=== PATIENT | male | born 1960 | race Caucasian/White ===

== ENCOUNTER 2016-09-27 19:52 | Inpatient (IN) | payer OTHER, MEDICAID, MEDICARE ==
[~2016-09-27] VITALS: Ht 193 cm; Wt 272.4 kg
[~2016-09-27 19:52] MED LIST: ALBU.5I NEB; AMIT50TA3 PO; ASPI-110 PO; BACL20TA PO; C-50TAB2 PO; CALC1TAB53 PO; CYAN100017 PO; FLUT1INH INH; GABA600T PO; GEMF600T PO; HYDR-3583 PO; LECI1200 PO; LISI2.5T3 PO; METF500T PO; OMEG100037 PO; OMEP20TA PO; POTA595T PO; VENTAER INH; VITATAB11 PO
[2016-09-27 20:04] VITALS: BP 143/76; PULSE 98; RESP 22; TEMP 97.8; O2SAT 95
[2016-09-27 20:37] VITALS: BP 137/70; PULSE 84; RESP 20; O2SAT 94
--- NOTE | 2016-09-27 20:37 | PD ---
HPI Chief Complaint: Chest Pain Time Seen by Provider: 20:21 Travel History International Travel<30 days: No Contact w/Intl Traveler<30days: No Traveled to known affect area: No History of Present Illness HPI The patient is a 56-year-old male with no known history of heart disease but who does have a history of COPD and is oxygen dependent on 2 L nasal cannula. He complains of a mostly sharp, pleuritic chest pain which radiates out the left arm. He denies any fever or cough. He states that the last time he had this chest pain he was admitted for pneumonia. He does have increased shortness of breath from what he usually feels. He denies any nausea or diaphoresis. PFSH Past Medical History Hx Anticoagulant Therapy: Yes (ASPIRIN) Arthritis: No Asthma: No Heart Rhythm Problems: Yes (HEART MUR MUR A CHILD) Cancer: Yes (RENAL) Cardiovascular Problems: Yes High Cholesterol: Yes Chemotherapy: No Chest Pain: No Congestive Heart Failure: No COPD: Yes Cerebrovascular Accident: No Coronary Artery Disease: No Diabetes: Yes Patient Takes Glucophage: Yes Diminished Hearing: Yes (BILAT HEARING AIDS) Endocrine: Yes Gastrointestinal Disorders: Yes (GERD) GERD: Yes Genitourinary: Yes Hepatitis: No Hiatal Hernia: No Hypertension: Yes Immune Disorder: No Kidney Stones: No Musculoskeletal: Yes Neurologic: Yes (NEUROPATHY, BILAT LEGS) Psychiatric: No Reproductive: No Respiratory: Yes Immunizations Current: Yes Migraines: No Radiation Therapy: No Renal Failure: No Seizures: No Sleep Apnea: Yes Thyroid Disease: No Ulcer: Yes Tetanus Vaccination: < 5 Years Influenza Vaccination: Yes Past Surgical History Abdominal Surgery: Yes (GALLBLADDER) AICD: No Arteriovenous Shunt: No Cardiac Surgery: No Cholecystectomy: Yes Ear Surgery: Yes (TUBES) Endocrine Surgery: No Eye Surgery: No Genitourinary Surgery: Yes (RENAL MASS BIOPSY AND CYRO) Gynecologic Surgery: No Hysterectomy: No Insulin Pump: No Joint Replacement: No Oral Surgery: Yes (TONSILLECTOMY) Pacemaker: No Thoracic Surgery: Yes (RIGHT LOBECTOMY) Tonsillectomy: Yes Other Surgery: Yes (UNDER RIGHT AXILLA REMOVED ABCESS) Social History Alcohol Use: No Tobacco Use: No (QUIT JANUARY 2013) Substance Use: No Allergies-Medications (Allergen,Severity, Reaction): Coded Allergies: Nonsteroidal Anti-Inflammatory Agts (Verified Adverse Reaction, Unknown, Bleeding, 09/27/16) GI BLEEDING Reported Meds & Prescriptions Reported Meds & Active Scripts Active Reported Breo Ellipta Inh (Fluticasone/Vilanterol) 100-25 Mcg/Act Inh 1 Puff INH DAILY Use daily at the same time. Lecithin 1,200 Mg Cap PO Potassium Gluconate 595 Mg Tab 1 Tab PO DAILY Vitamin B Complex (B-Complex Vitamins) 1 Tab 1 Tab PO DAILY Fish Oil 1000 mg ([place]-3 Fatty Acids) 1 Cap Cap 1 Cap PO DAILY Aspirin 81 (Aspirin) 81 Mg Tabdr 81 Mg PO DAILY B-12 (Cyanocobalamin) 1,000 Mcg Cap 1,000 Mcg PO DAILY Calcium & Magnesium + Zinc (Vouislz-Gxakdupix-Aamg) 334-134-5 Mg Tab 1 Tab PO DAILY C-500 (Ascorbic Acid) 500 Mg Tab 1 Tab PO TID Albuterol Neb (Albuterol Sulfate) 2.5 Mg/0.5 Ml Neb 2.5 Mg NEB Q4HR NEB PRN Note: The Albuterol Sulfate Inhalation Solution is concentrated and must be diluted. Read complete instructions carefully before using. Ventolin Hfa 18 GM Inh (Albuterol Sulfate) 90 Mcg/Act Aer 2 Puff INH Q4H PRN Metformin (Metformin HCl) 500 Mg Tab 500 Mg PO BIDPC With meals Lisinopril 2.5 Mg Tab 2.5 Mg PO DAILY Omeprazole 20 Mg Tab 20 Mg PO DAILY Gemfibrozil 600 Mg Tab 600 Mg PO BIDAC Take 30 minutes prior to breakfast and dinner. Amitriptyline (Amitriptyline HCl) 50 Mg Tab 50 Mg PO HS Hydrocodone-Acetaminophen 10-325 mg Tab 1 Tab PO Q6H PRN Baclofen 20 Mg Tab 20 Mg PO TID Gabapentin 600 Mg Tab 600 Mg PO TID Review of Systems Except as stated in HPI: all other systems reviewed are Neg Physical Exam Narrative GENERAL: The patient is alert, oriented 3 and slight respiratory distress. His vital signs show blood pressure 143/76 with heart rate of 98 and respirations 22 and oximetry 95% on 2 L nasal cannula. His temperature is normal at 97.8. SKIN: Warm and dry. HEAD: Atraumatic. Normocephalic. EYES: Pupils equal and round. No scleral icterus. No injection or drainage. ENT: No nasal bleeding or discharge. Mucous membranes pink and moist. NECK: Trachea midline. No JVD. CARDIOVASCULAR: Regular rate and rhythm. No murmur appreciated. RESPIRATORY: No accessory muscle use. Clear to auscultation. Breath sounds equal bilaterally. Diminished breath sounds are heard bilaterally. GASTROINTESTINAL: Abdomen soft, non-tender, nondistended. Hepatic and splenic margins not palpable. MUSCULOSKELETAL: No obvious deformities. No clubbing. No cyanosis. No edema. NEUROLOGICAL: Awake and alert. No obvious cranial nerve deficits. Motor grossly within normal limits. Normal speech. PSYCHIATRIC: Appropriate mood and affect; insight and judgment normal. Data Data Last Documented VS Vital Signs Date Time Temp Pulse Resp B/P Pulse Ox O2 Delivery O2 Flow Rate FiO2 09/27/16 20:40 86 24 93 Nasal Cannula 2 09/27/16 20:37 137/70 09/27/16 20:04 97.8 Orders Electrocardiogram (09/27/16 20:20) Complete Blood Count With Diff (09/27/16 20:20) Basic Metabolic Panel (Bmp) (09/27/16 20:20) Ckmb (Isoenzyme) Profile (09/27/16 20:20) Troponin I (09/27/16 20:20) Iv Access Insert/Monitor (09/27/16 20:20) Ecg Monitoring (09/27/16 20:20) Oxygen Administration (09/27/16 20:20) Oximetry (09/27/16 20:20) Chest, Pa & Lat (09/27/16 20:20) Arterial Blood Gas (Abg) (09/27/16 20:31) Albuterol-Ipratropium Neb (Duoneb Neb) (09/27/16 20:45) B-Type Natriuretic Peptide (09/27/16 20:32) CKMB (09/27/16 20:30) CKMB% (09/27/16 20:30) Pneumococcal Urinary Antigen (09/27/16 21:47) Influenzae A/B Antigen (09/27/16 21:47) Blood Culture (09/27/16 21:47) Legionella Urinary Antigen (09/27/16 21:47) Sodium Chloride 0.9% Flush (Ns Flush) (09/27/16 22:00) Ceftriaxone Inj (Rocephin Inj) (09/27/16 22:00) Azithromycin Inj (Zithromax Inj) (09/27/16 22:00) Hydromorphone Pf Inj (Dilaudid Pf Inj) (09/27/16 22:00) Ondansetron Inj (Zofran Inj) (09/27/16 22:00) Ct Pulmonary Angiogram (09/27/16 21:56) Labs Laboratory Tests Test 09/27/16 09/27/16 20:30 20:45 White Blood Count 9.8 TH/MM3 Red Blood Count 4.42 MIL/MM3 Hemoglobin 13.7 GM/DL Hematocrit 40.6 % Mean Corpuscular Volume 92.0 FL Mean Corpuscular Hemoglobin 31.0 PG Mean Corpuscular Hemoglobin 33.7 % Concent Red Cell Distribution Width 12.3 % Platelet Count 229 TH/MM3 Mean Platelet Volume 8.7 FL Neutrophils (%) (Auto) 52.2 % Lymphocytes (%) (Auto) 37.4 % Monocytes (%) (Auto) 7.2 % Eosinophils (%) (Auto) 2.9 % Basophils (%) (Auto) 0.3 % Neutrophils # (Auto) 5.2 TH/MM3 Lymphocytes # (Auto) 3.6 TH/MM3 Monocytes # (Auto) 0.7 TH/MM3 Eosinophils # (Auto) 0.3 TH/MM3 Basophils # (Auto) 0.0 TH/MM3 CBC Comment DIFF FINAL Differential Comment Sodium Level 139 MEQ/L Potassium Level 4.2 MEQ/L Chloride Level 104 MEQ/L Carbon Dioxide Level 26.3 MEQ/L Anion Gap 9 MEQ/L Blood Urea Nitrogen 13 MG/DL Creatinine 0.76 MG/DL Estimat Glomerular Filtration 107 ML/MIN Rate Random Glucose 220 MG/DL Calcium Level 8.9 MG/DL Total Creatine Kinase 652 U/L Creatine Kinase MB 7.3 NG/ML Creatine Kinase MB % 1.1 % Troponin I LESS THAN 0.02 NG/ML B-Type Natriuretic Peptide 9 PG/ML Blood Gas Puncture Site RT RADIAL Blood Gas Patient Temperature 37.0 Blood Gas HCO3 22 mmol/L Blood Gas Base Excess -2.3 mmol/L Blood Gas Oxygen Saturation 90 % Arterial Blood pH 7.40 Arterial Blood Partial 36 mmHg Pressure CO2 Arterial Blood Partial 63 mmHg Pressure O2 Arterial Blood Oxygen Content 17.0 Vol % Arterial Blood 1.5 % Carboxyhemoglobin Arterial Blood Methemoglobin 0.8 % Blood Gas Hemoglobin 13.4 G/DL Oxygen Delivery Device NASAL CANNULA Blood Gas Liter Flow 1 L/M MDM Medical Decision Making Medical Screen Exam Complete: Yes Emergency Medical Condition: Yes Medical Record Reviewed: Yes Interpretation(s) The chest x-ray shows by basilar infiltrates right greater than left. The complete metabolic profile shows a glucose of 220 but otherwise unremarkable, the cardiac enzymes show CK of 652, normal troponin and the CK percentage is normal. The BNP is normal. The CBC is normal. The blood gases on 1 L nasal cannula show pH 7.40, CO2 36, PO2 63 with O2 sat 90%. The EKG shows sinus rhythm with a rate of [address] elevation or depression. Differential Diagnosis Pneumonia, pneumothorax, acute coronary syndrome, electrolyte disorder, anemia, pulmonary embolusunlikely, Narrative Course The patient appears to have a bilateral pneumonia. Plan: He will be admitted to Dr. Lee of the [facility]. We will do a CTA to rule out pulmonary embolus. Physician Communication Physician Communication I discussed the patient with Dr. Lee. The patient will be admitted to her here at [facility]. Diagnosis Primary Impression: Bilateral pneumonia Admitting Information Admitting Physician Requests: Admit Corey Machado MD Sep 27, 2016 20:36
[2016-09-27 20:39] LABS: AUTOMATED NEUTROPHIL # 5.2 TH/MM3 (1.8-7.7); BASOPHIL % 0.3 % (0.0-2.0); EOSINOPHIL # 0.3 TH/MM3 (0-0.4); EOSINOPHIL % 2.9 % (0.0-4.0); HEMATOCRIT 40.6 % (39.0-51.0); HEMO FLAGS DIFF FINAL; LYMPH % 37.4 % (9.0-44.0); LYMPHOCYTE # 3.6 TH/MM3 (1.0-4.8); MEAN CORPUSCULAR HGB CONC 33.7 % (32.0-36.0); MONO % 7.2 % (0.0-8.0); NEUT % 52.2 % (16.0-70.0); PLATELET COUNT 229 TH/MM3 (150-450); RED BLOOD COUNT 4.42 MIL/MM3 (4.50-5.90); RED CELL DISTRIBUTION WIDTH 12.3 % (11.6-17.2); WHITE BLOOD COUNT 9.8 TH/MM3 (4.0-11.0)
[2016-09-27] MEDS: RESP: ALBUTEROL 2.5 MG/IPRATROPIUM 0.5 MG NEB (SCH) INH ×3 (20:43→20:59)
[2016-09-27 20:51] LABS: CHLORIDE 104 MEQ/L (98-107); POTASSIUM 4.2 MEQ/L (3.5-5.1); SODIUM (NA) 139 MEQ/L (136-145)
[2016-09-27 20:55] LABS: ANION GAP 9 MEQ/L (5-15); BICARBONATE 26.3 MEQ/L (21.0-32.0); BLOOD UREA NITROGEN 13 MG/DL (7-18)
[2016-09-27 20:58] LABS: GLOMERULAR FILTRATION RATE 107 ML/MIN (>89)
[2016-09-27 21:01] LABS: BLOOD GAS BASE EXCESS -2.3 mmol/L (-2-2); BLOOD GAS CARBOXYHEMOGLOBIN 1.5 % (0-4); BLOOD GAS HCO3 22 mmol/L (22-26); BLOOD GAS METHEMOGLOBIN 0.8 % (0-2); BLOOD GAS O2 HGB SATURATION 90 % (90-100); BLOOD GAS PCO2 36 mmHg (38-42); BLOOD GAS PO2 63 mmHg (61-120); BLOOD GAS TOTAL HGB 13.4 G/DL (12.0-16.0); CRITICAL VALUE NO; DRAW SITE RT RADIAL; LITER FLOW 1 L/M; NUMBER OF ARTERIAL PUNCTURES 1; OXYGEN DEVICE NASAL CANNULA; STAT YES; ULNAR PULSE PRESENT
[2016-09-27 21:01] LABS: CREATINE KINASE 652 U/L (39-308)
[2016-09-27 21:07] VITALS: BP 149/92; PULSE 88; RESP 20; O2SAT 92
[2016-09-27 21:14] LABS: CKMB 7.3 NG/ML (0.5-3.6)
--- NOTE | 2016-09-27 21:40 | RADHPO ---
EXAM DATE/TIME: 09/27/2016 21:14 [facility] COMPARISON: CHEST SINGLE AP, August 08, 2016, 0:40. INDICATIONS : Shortness of breath MEDICAL HISTORY : Chronic obstructive pulmonary disease. SURGICAL HISTORY : Right lobectomy ENCOUNTER: Initial ACUITY: 1 day PAIN SCORE: 0/10 LOCATION: Bilateral chest FINDINGS: PA and lateral views of the chest demonstrate bibasilar infiltrates greater in the right lower lobe. The cardiomediastinal contours are unremarkable. Osseous structures are intact. CONCLUSION: Bibasilar infiltrates. Gilson Nova MD on September 27, 2016 at 21:38 Board Certified Radiologist. This report was verified electronically.
[2016-09-27] MEDS ORDERED: cefTRIAXone INJ 1,000 MG in SODIUM CHLORIDE 0.9% INJ 100 ML IV ONE (22:00)
[2016-09-27] MEDS ORDERED: SODIUM CHLORIDE 0.9% FLUSH 5 ML FLUSH IVF PRN (22:00)
[2016-09-27] MEDS ORDERED: HYDROmorphone HCL PF 1 MG/ML VIAL IVP ONE (22:00)
[2016-09-27] MEDS ORDERED: AZITHROMYCIN INJ 500 MG in SODIUM CHLOR 0.9% 250 ML INJ 250 ML IV ONE (22:00)
[2016-09-27] MEDS ORDERED: ONDANSETRON HCL 4 MG/2 ML VIAL IV ONE (22:00)
[2016-09-27] MEDS ORDERED: IOHEXOL 350 MG/ML 10 ML VIAL (for RAD DIAG) IV ONE (22:19)
[2016-09-27 22:25] VITALS: BP 137/64; PULSE 91; RESP 20; O2SAT 9; O2SAT 95
--- NOTE | 2016-09-27 22:42 | RADHPO ---
EXAM DATE/TIME: 09/27/2016 22:15 [facility] COMPARISON: No previous studies available for comparison. INDICATIONS : Left sided chest pain today. IV CONTRAST: 60 cc Omnipaque 350 (iohexol) IV RADIATION DOSE: 21.07 CTDIvol (mGy) MEDICAL HISTORY : Hypertension. Heart mur,ur SURGICAL HISTORY : Lobectomy. ENCOUNTER: Initial ACUITY: 1 day PAIN SCALE: 8/10 LOCATION: Left upper chest TECHNIQUE: Volumetric scanning of the chest was performed using a pulmonary embolism protocol MIP images were re constructed. Using automated exposure control and adjustment of the mA and/or kV according to patien t size, radiation dose was kept as low as reasonably achievable to obtain optimal diagnostic quality images. FINDINGS: PULMONARY ARTERIES: No filling defects are seen in the pulmonary arteries through the segmental level. LUNGS: Severe emphysema. There is no consolidation or pneumothorax . No concerning pulmonary nodule is visu alized. PLEURAE: There is no pleural thickening or pleural effusion. MEDIASTINUM: There is good visualization of the great vessels of the middle mediastinum. No evidence of mediastin al or hilar adenopathy/mass. MUSCULOSKELETAL: Within normal limits for patient age. MISCELLANEOUS: The visualized upper abdominal organs demonstrate no acute abnormality. CONCLUSION: 1. No evidence for pulmonary embolism. 2. Severe emphysema Gilson Nova MD on September 27, 2016 at 22:39 Board Certified Radiologist. This report was verified electronically.
[2016-09-27] MEDS ORDERED: ACETAMINOPHEN 325 MG TAB PO PRN (23:00)
[2016-09-27] MEDS ORDERED: RESP: ALBUTEROL 2.5 MG/IPRATROPIUM 0.5 MG NEB (PRN) NEB (23:00)
[2016-09-27] MEDS ORDERED: BISACODYL 10 MG SUPP PR PRN (23:00)
[2016-09-27] MEDS ORDERED: SENNOSIDES 8.6 MG TAB PO PRN (23:00)
[2016-09-27] MEDS ORDERED: ENOXAPARIN SODIUM 40 MG/0.4 ML SYRINGE SQ SCH (23:00)
[2016-09-27] MEDS ORDERED: MAGNESIUM HYDROXIDE SUSP 30 ML CUP PO PRN (23:00)
[2016-09-27] MEDS ORDERED: ONDANSETRON HCL 4 MG/2 ML VIAL IVP PRN (23:00)
[2016-09-27] MEDS ORDERED: SODIUM CHLORIDE 0.9% FLUSH 5 ML FLUSH FLUSH PRN (23:00)
[2016-09-28] VITALS (11 sets, daily range): BP systolic 119–134; BP diastolic 69–81; PULSE 75–86; RESP 16–20; TEMP 96.3–97.3; O2SAT 91–98
[2016-09-28] MEDS: SODIUM CHLOR 0.9% 1000 ML INJ 1,000 ML IV SCH ×2 (00:26→08:55)
[2016-09-28] MEDS ORDERED: ONDANSETRON HCL 4 MG/2 ML VIAL IV ONE (03:15)
[2016-09-28] MEDS ORDERED: HYDROmorphone HCL PF 1 MG/ML VIAL IVP ONE (03:15)
--- NOTE | 2016-09-28 05:24 | EKG ---
Date Performed: 09/27/2016 Time Performed: 19:56:02 PTAGE: 56 years EKG: Sinus rhythm . Septal T wave changes are nonspecific Borderline ECG NO SIGNIFICANT CHANGE FROM PRIOR ELECTROCARDIO GRAM. PREVIOUS TRACING : 08/08/2016 11.51 DOCTOR: All Reed Interpretating Date/Time 09/28/2016 05:24:18
[2016-09-28 06:16] LABS: CHLORIDE 106 MEQ/L (98-107); POTASSIUM 4.2 MEQ/L (3.5-5.1); SODIUM (NA) 139 MEQ/L (136-145)
[2016-09-28 06:21] LABS: ANION GAP 9 MEQ/L (5-15); BLOOD UREA NITROGEN 12 MG/DL (7-18)
[2016-09-28 06:24] LABS: ALT (GPT) 74 U/L (12-78); AST (GOT) 35 U/L (15-37); GLOMERULAR FILTRATION RATE 133 ML/MIN (>89)
[2016-09-28 06:26] LABS: TOTAL BILIRUBIN ADULT 0.4 MG/DL (0.2-1.0)
[2016-09-28 06:27] LABS: ALKALINE PHOSPHATASE 69 U/L (45-117)
[2016-09-28 06:31] LABS: CREATINE KINASE 293 U/L (39-308)
[2016-09-28 06:44] LABS: CKMB 2.9 NG/ML (0.5-3.6)
[2016-09-28] MEDS ORDERED: GLUCAGON 1 MG/ML VIAL OTHER PRN (07:15)
[2016-09-28] MEDS ORDERED: DEXTROSE 50% IN WATER 50 ML VIAL(D50) IV PUSH PRN (07:15)
--- NOTE | 2016-09-28 07:57 | EKG ---
Date Performed: 09/28/2016 Time Performed: 06:01:02 PTAGE: 56 years EKG: Sinus rhythm Septal T wave changes are nonspecific Borderline ECG NO SIGNIFICANT CHANGE FROM PRIOR ELECTROCARDIOG TAYLOR. PREVIOUS TRACING : 09/27/2016 19.56 DOCTOR: All Reed Interpretating Date/Time 09/28/2016 07:56:24
[2016-09-28] MEDS: RESP: ALBUTEROL 2.5 MG/IPRATROPIUM 0.5 MG NEB (SCH) NEB ×3 (08:04→16:00)
[2016-09-28] MEDS: GABAPENTIN 300 MG CAP PO SCH ×3 (08:42→17:17)
[2016-09-28] MEDS: ACETAMINOPHEN/HYDROcodone 325 MG/10 MG TAB PO PRN ×2 (08:44→15:18)
[2016-09-28] MEDS: BACLOFEN 20 MG TAB PO SCH ×3 (08:51→17:28)
[2016-09-28] MEDS ORDERED: SODIUM CHLORIDE 0.9% FLUSH 5 ML FLUSH FLUSH SCH (09:00)
[2016-09-28] MEDS ORDERED: PANTOPRAZOLE SOD 20 MG DELAYED RELEASE TAB PO SCH (09:00)
[2016-09-28] MEDS ORDERED: BREO ELLIPTA PO SCH (09:00)
[2016-09-28] MEDS ORDERED: guaiFENesin E.R. 600 MG TAB PO SCH (09:00)
[2016-09-28] MEDS ORDERED: cefTRIAXone INJ 1,000 MG in SODIUM CHLORIDE 0.9% INJ 100 ML IV SCH (09:00)
[2016-09-28] MEDS ORDERED: LISINOPRIL 5 MG TAB PO SCH (09:00)
[2016-09-28] MEDS ORDERED: ASPIRIN EC 81 MG TABEC PO SCH (09:00)
[2016-09-28] MEDS ORDERED: NON-FORMULARY DRUG (Potassium Gluconate 1 TAB) PO SCH (09:00)
[2016-09-28] MEDS: INSULIN ASPART SUPPLEMENTAL SCALE SQ SCH ×2 (11:24→15:29)
--- NOTE | 2016-09-28 12:26 | HHI.HP ---
[facility] Service [facility] Primary Care Physician Non-Staff Admission Diagnosis bilateral pneumonia Diagnoses: (1) Chest pain Diagnosis: Principal (2) Hypertension Diagnosis: Secondary (3) Hyperlipidemia Diagnosis: Secondary (4) Diabetes Diagnosis: Secondary (5) COPD (chronic obstructive pulmonary disease) Diagnosis: Secondary Travel History International Travel<30 Days: No Contact w/Intl Traveler <30 Da: No Traveled to Known Affected Are: No History of Present Illness 56-year-old male with known history of hypertension, hyperlipidemia, diabetes, chronic obstructive pulmonary disease, neuropathy. Presented to hospital because of chest discomfort. Patient states that over the last month he has been experiencing intermittent chest pain located left anterior chest rating into left arm. He denies any nausea, vomiting, diaphoresis, shortness of breath, dyspnea. He is undergoing outpatient evaluation with his primary medical doctor, he is waiting for cardiology referral to be completed. However patient did have another episode yesterday with the pain in the left side of his chest into his left arm that lasted for a couple minutes at a time. He indicates that the pain can happen while he is resting or during exertion it does not matter. Patient had workup done emergency department x-ray did indicate bilateral pneumonia and ER physician recommended admission for that reason, however CTA was performed which did not indicate any pneumonia. At the present time patient still with his initial presentation of chest pain. We'll continue evaluation of the patient in the chest pain center. Review of Systems Constitutional: DENIES: Diaphoretic episodes, Fatigue, Fever, Weight gain, Weight loss, Chills, Dizziness, Change in appetite, Night Sweats Eyes: DENIES: Blurred vision, Diplopia, Eye inflammation, Eye pain, Vision loss , Double Vision Ears, nose, mouth, throat: DENIES: Vertigo, Nasal discharge, Throat pain, Ear Pain, Running Nose, Sinus Pain Respiratory: DENIES: Apneas, Cough, Snoring, Wheezing, Hemoptysis, Sputum production, Shortness of breath Cardiovascular: COMPLAINS OF: Chest pain, DENIES: Palpitations, Syncope, Dyspnea on Exertion, Lower Extremity Edema, Orthopnea Gastrointestinal: DENIES: Abdominal pain, Black stools, Bloody stools, Constipation, Diarrhea, Nausea, Vomiting, Difficulty Swallowing, Anorexia Neurologic: DENIES: Abnormal gait, Headache, Localized weakness, Paresthesias, Seizures, Speech Problems, Tremor, Poor Balance Psychiatric: DENIES: Anxiety, Confusion, Mood changes, Depression Past Family Social History Past Medical History Hypertension Hyperlipidemia Diabetes Diabetic neuropathy Chronic objective pulmonary disease History of renal cancer Gastroesophageal reflux History Scratched fever Bolus emphysema Past Surgical History Cryoablation renal cell carcinoma Laparoscopic cholecystectomy cyst excision from back Partial lung resection Cholecystectomy Tonsillectomy Reported Medications Reported Meds & Active Scripts Active Reported Breo Ellipta Inh (Fluticasone/Vilanterol) 100-25 Mcg/Act Inh 1 Puff INH DAILY Use daily at the same time. Lecithin 1,200 Mg Cap PO Potassium Gluconate 595 Mg Tab 1 Tab PO DAILY Vitamin B Complex (B-Complex Vitamins) 1 Tab 1 Tab PO DAILY Fish Oil 1000 mg ([place]-3 Fatty Acids) 1 Cap Cap 1 Cap PO DAILY Aspirin 81 (Aspirin) 81 Mg Tabdr 81 Mg PO DAILY B-12 (Cyanocobalamin) 1,000 Mcg Cap 1,000 Mcg PO DAILY Calcium & Magnesium + Zinc (Lwcjvim-Cowqrqihx-Qhzz) 334-134-5 Mg Tab 1 Tab PO DAILY C-500 (Ascorbic Acid) 500 Mg Tab 1 Tab PO TID Albuterol Neb (Albuterol Sulfate) 2.5 Mg/0.5 Ml Neb 2.5 Mg NEB Q4HR NEB PRN Note: The Albuterol Sulfate Inhalation Solution is concentrated and must be diluted. Read complete instructions carefully before using. Ventolin Hfa 18 GM Inh (Albuterol Sulfate) 90 Mcg/Act Aer 2 Puff INH Q4H PRN Metformin (Metformin HCl) 500 Mg Tab 500 Mg PO BIDPC With meals Lisinopril 2.5 Mg Tab 2.5 Mg PO DAILY Omeprazole 20 Mg Tab 20 Mg PO DAILY Gemfibrozil 600 Mg Tab 600 Mg PO BIDAC Take 30 minutes prior to breakfast and dinner. Amitriptyline (Amitriptyline HCl) 50 Mg Tab 50 Mg PO HS Hydrocodone-Acetaminophen 10-325 mg Tab 1 Tab PO Q6H PRN Baclofen 20 Mg Tab 20 Mg PO TID Gabapentin 600 Mg Tab 600 Mg PO TID Allergies: Coded Allergies: Nonsteroidal Anti-Inflammatory Agts (Verified Adverse Reaction, Unknown, Bleeding, 09/27/16) GI BLEEDING Family History Reviewed and significant for cancer in the family, multiple types Social History Patient quit smoking in 2012, prior to that he smoked 1-1/2 pack a cigarettes a day since he was teenager. Patient denies any alcohol or illicit drugs Physical Exam Vital Signs Vital Signs Date Time Temp Pulse Resp B/P Pulse Ox O2 Delivery O2 Flow Rate FiO2 09/28/16 09:08 97.0 81 18 122/76 91 09/28/16 08:06 94 Nasal Cannula 2.00 09/28/16 08:00 81 09/28/16 06:15 119/80 09/28/16 05:48 96.3 75 20 92 09/28/16 05:42 83 09/28/16 05:34 80 18 120/69 95 Nasal Cannula 2 09/28/16 03:39 18 09/28/16 03:00 83 18 119/81 95 Nasal Cannula 2 09/28/16 02:30 82 20 119/72 96 Nasal Cannula 2 09/28/16 00:30 83 20 134/72 98 09/27/16 23:00 Nasal Cannula 2.00 09/27/16 22:42 20 09/27/16 22:25 91 20 137/64 95 Nasal Cannula 2 09/27/16 21:07 88 20 149/92 92 2 09/27/16 20:40 86 24 93 Nasal Cannula 2 09/27/16 20:37 93 Nasal Cannula 2 09/27/16 20:37 84 20 137/70 94 Nasal Cannula 2 09/27/16 20:10 98 18 95 Nasal Cannula 2 09/27/16 20:04 97.8 98 22 143/76 95 Physical Exam GENERAL: Well-developed, well-nourished, in no acute distress. alert and orientated HEENT: Head is normocephalic without any lesions or masses noted. Facial features are symmetric. Eyes: Pupils equal round reactive to light. Extraocular muscles are intact. Conjunctivae were clear. Oropharyngeal: Pharynx without any erythema edema. Tongue is midline without deviation. Buccal mucosa is moist without any masses or lesions NECK: Supple without any masses. Trachea midline no deviation. No JVD, no bruits are appreciated CARDIAC: Regular rhythm, regular rate. S1/S2 are heard. No murmurs gallops or rubs. LUNGS: Clear to auscultation bilaterally. No wheeze, rhonchi or rales. No use of accessory muscles on inspiration or expiration. ABDOMEN: Soft, nontender. Nondistended. Bowel sounds heard in all 4 quadrants. No organomegaly or masses. Negative rebound, negative guarding EXTREMITIES: No edema, pulses are equal bilaterally. No cyanosis or clubbing NEUROLOGY: Mood and affect appear appropriate. Cranial nerves II through XII grossly intact. Muscle strength 5/5 in upper and lower extremities bilaterally. Deep tendon reflexes are 2+ in upper and lower extremities bilaterally. Laboratory Laboratory Tests Test 09/27/16 09/27/16 09/28/16 20:30 20:45 05:50 White Blood Count 9.8 Red Blood Count 4.42 Hemoglobin 13.7 Hematocrit 40.6 Mean Corpuscular Volume 92.0 Mean Corpuscular Hemoglobin 31.0 Mean Corpuscular Hemoglobin 33.7 Concent Red Cell Distribution Width 12.3 Platelet Count 229 Mean Platelet Volume 8.7 Neutrophils (%) (Auto) 52.2 Lymphocytes (%) (Auto) 37.4 Monocytes (%) (Auto) 7.2 Eosinophils (%) (Auto) 2.9 Basophils (%) (Auto) 0.3 Neutrophils # (Auto) 5.2 Lymphocytes # (Auto) 3.6 Monocytes # (Auto) 0.7 Eosinophils # (Auto) 0.3 Basophils # (Auto) 0.0 CBC Comment DIFF FINAL Differential Comment Sodium Level 139 139 Potassium Level 4.2 4.2 Chloride Level 104 106 Carbon Dioxide Level 26.3 24.0 Anion Gap 9 9 Blood Urea Nitrogen 13 12 Creatinine 0.76 0.63 Estimat Glomerular Filtration 107 133 Rate Random Glucose 220 202 Calcium Level 8.9 8.4 Total Creatine Kinase 652 293 Creatine Kinase MB 7.3 2.9 Creatine Kinase MB % 1.1 Troponin I LESS THAN 0.02 LESS THAN 0.02 B-Type Natriuretic Peptide 9 Blood Gas Puncture Site RT RADIAL Blood Gas Patient Temperature 37.0 Blood Gas HCO3 22 Blood Gas Base Excess -2.3 Blood Gas Oxygen Saturation 90 Arterial Blood pH 7.40 Arterial Blood Partial 36 Pressure CO2 Arterial Blood Partial 63 Pressure O2 Arterial Blood Oxygen Content 17.0 Arterial Blood 1.5 Carboxyhemoglobin Arterial Blood Methemoglobin 0.8 Blood Gas Hemoglobin 13.4 Oxygen Delivery Device NASAL CANNULA Blood Gas Liter Flow 1 Total Bilirubin 0.4 Aspartate Amino Transf 35 (AST/SGOT) Alanine Aminotransferase 74 (ALT/SGPT) Alkaline Phosphatase 69 Total Protein 6.7 Albumin 3.5 Date/Time Procedure Status Source Growth 09/27/16 22:40 Influenza Types A,B Antigen (TRISTEN) - Final Complete Nasal Washing NEGATIVE FOR FLU A AND B ANTIGEN.... 09/27/16 22:35 Legionella Antigen Resulted Urine Random Urine Pending 09/27/16 22:35 Streptococcus pneumoniae Antigen (M - Final Resulted Urine Random Urine PRESUMPTIVE NEGATIVE FOR STREPTOCOCCU... 09/27/16 22:35 Aerobic Blood Culture - Preliminary Resulted Blood Peripheral NO GROWTH IN 1 DAY 09/27/16 22:35 Anaerobic Blood Culture - Preliminary Resulted Blood Peripheral NO GROWTH IN 1 DAY Result Diagram: 09/27/16202909/28/[address] Angiography 09/27/162155 Signed Impressions: Service Date/Time: Tuesday, September 27, 2016 22:15 - CONCLUSION: 1. No evidence for pulmonary embolism. 2. Severe emphysema Gilson Nova MD Chest X-Ray 09/27/162019 Signed Impressions: Service Date/Time: Tuesday, September 27, 2016 21:14 - CONCLUSION: Bibasilar infiltrates. Gilson Nova MD Assessment and Plan Assessment and Plan Chest pain, atypical Patient with increased risk factors to include age, male, hypertension, hyperlipidemia, diabetes Serial cardiac enzymes were performed and reviewed which were negative Serial EKGs were performed and reviewed which does show sinus rhythm without any changes Patient ruled out for any acute coronary event nuclear stress test was negative for any underlying ischemia Continue aspirin Hypertension, blood pressure stable Continue home medications Hyperlipidemia Continue statin Diabetes Accu-Cheks with sliding scale insulin Chronic pain with peripheral neuropathy Continue home medications DVT prevention Lovenox Written by Florencio Machado PA-C, acting as scribe for Dr. Hunt on 09/28/16 at 1545. The documentation accurately reflects the work and decisions performed face-to- face by Dr. Hunt on 09/28/16 at 1545. Discharge disposition Discharge home in stable condition Activity: ad Karin Diet: Diabetic diet Medication per medication reconciliation sheet Follow up with primary medical doctor in 1 week Problem Qualifiers (1) Chest pain: Qualified Code: I20.9 - Ischemic chest pain (2) Hypertension: Qualified Code: I15.9 - Secondary hypertension (3) Hyperlipidemia: Qualified Code: E78.5 - Hyperlipidemia, unspecified hyperlipidemia type (4) Diabetes: Qualified Code: E11.8 - Type 2 diabetes mellitus with complication, without long-term current use of insulin (5) COPD (chronic obstructive pulmonary disease): Qualified Code: J44.9 - Chronic obstructive pulmonary disease, unspecified COPD type Florencio Machado Sep 28, 2016 12:26
[2016-09-28] MEDS ORDERED: REGADENOSON INJ 0.4 MG/5 ML SYR IV ONE (13:38)
--- NOTE | 2016-09-28 15:27 | RADHPO ---
EXAM DATE/TIME: 09/28/2016 14:08 [facility] COMPARISON: No previous studies available for comparison. INDICATIONS : Chest pain radiating to the left arm with dyspnea. Angina. DOSE: 35 mCi Tc99m Myoview at stress. 11 mCi Tc99m Myoview at rest. 0.4 mg Lexiscan STRESS SYMPTOMS: Chest heaviness. EJECTION FRACTION: 65% MEDICAL HISTORY : Diabetes mellitus type 2. Renal cell carcinoma. Chronic obstructive pulmonary disease. Hypertension. SURGICAL HISTORY : Tonsillectomy. Cholecystectomy. Lobectomy. ENCOUNTER: Initial ACUITY: 1 day PAIN SCALE: 5/10 LOCATION: chest TECHNIQUE: The patient underwent pharmacologic stress with infusion of prescribed dose. Continuous ECG tracing was monitored during stress. Gated SPECT imaging was performed after stress and conventional SPECT i maging was performed at rest. The examination was performed on a SPECT/CT scanner, both attenuation and non-corrected datasets were reviewed. FINDINGS: DISTRIBUTION: The maximum perfused segment at stress is in the septal wall. PERFUSION STUDY: The pattern of perfusion at stress is within normal limits. GATED STUDY: There is intact wall motion and thickening without hypokinetic or dyskinetic segments. CONCLUSION: No significant fixed or reversible perfusion abnormalities and satisfactory LV function RISK CATEGORY: Low (<1% Annual Mortality Rate) Chad Kaminski MD on September 28, 2016 at 15:19 Board Certified Radiologist. This report was verified electronically.
--- NOTE | 2016-09-28 15:29 | HHI.DCPOC ---
Discharge Care Plan Diagnosis: (1) Chest pain Goals to Promote Your Health * To prevent worsening of your condition and complications * To maintain your health at the optimal level Directions to Meet Your Goals Take your medications as prescribed Follow your dietary instruction Follow activity as directed Keep your appointments as scheduled Take your immunizations and boosters as scheduled If your symptoms worsen call your PCP, if no PCP go to Urgent Care Center or Emergency Room Smoking is Dangerous to Your Health. Avoid second hand smoke Call the 24-hour hour crisis hotline for domestic abuse at Florencio Machado Sep 28, 2016 15:29
[2016-09-28] MEDS ORDERED: AMITRIPTYLINE HCL 50 MG TAB PO SCH (21:00)
[2016-09-28] MEDS ORDERED: AZITHROMYCIN INJ 500 MG in SODIUM CHLOR 0.9% 250 ML INJ 250 ML IV SCH (22:00)
--- NOTE | 2016-09-29 14:40 | TR ---
Date Performed: 09/28/2016 Time Performed: 14:19:04 DOCTOR: Shannon Clement DRUG LIST: CLINICAL HISTORY: REASON FOR TEST: Chest pain. REASON FOR ENDING: OBSERVATION: CONCLUSION: Lexiscan stress test was performed under standard four minute protocol. Radionuclid e was injected one minute prior to ending the test. No electrocardiographic abormalities were present to suggest ischemia. Nuclear imaging and interpretation are pending. COMMENTS:
== END 2016-09-28 17:40 | disposition home or self-care (01) | DRG 313 ==
LOC: PHED 19:52 → PHEDA 22:20 → PH3B 09-28 05:24
PROVIDERS: ADMIT Family Medicine; ATTEND Family Medicine
PROC: 3E0F7GC Introduction of Other Therapeutic Substance into Respiratory Tract, Via Natural or Artificial Opening (ICD-10-PCS; principal; 2016-09-27)
DX: R07.89 Other chest pain (principal); E11.40 Type 2 diabetes mellitus with diabetic neuropathy, unspecified; Z99.81 Dependence on supplemental oxygen; J44.9 Chronic obstructive pulmonary disease, unspecified; E78.00 Pure hypercholesterolemia, unspecified; H91.93 Unspecified hearing loss, bilateral; K21.9 Gastro-esophageal reflux disease without esophagitis; Z85.528 Personal history of other malignant neoplasm of kidney; E78.5 Hyperlipidemia, unspecified; Z87.891 Personal history of nicotine dependence; G47.30 Sleep apnea, unspecified; I15.9 Secondary hypertension, unspecified; Z79.84 Long term (current) use of oral hypoglycemic drugs
CPT/HCPCS: 36600; 71020; 71275; 78452; 80048; 80053; 82550; 82552; 82805; 82948; 83880; 84484; 85025; 87040; 87449; 87804; 93005; 93017; 94640; 94664; 96374; 96375; A9502; J0456; J0696; J1170; J1650; J1815; J2405; J2785; J7030; J7050; Q9967

== ENCOUNTER 2016-12-29 19:41 | Emergency (ER) | payer OTHER, MEDICAID ==
[~2016-12-29] VITALS: Ht 175.3 cm; Wt 130.0 kg
[2016-12-29 19:47] VITALS: BP 151/75; PULSE 96; RESP 18; TEMP 98; O2SAT 94
--- NOTE | 2016-12-29 19:57 | PD ---
HPI Chief Complaint: Chest Pain Time Seen by Provider: 19:46 Travel History International Travel<30 days: No Contact w/Intl Traveler<30days: No Traveled to known affect area: No History of Present Illness HPI This 56-year-old male is complaining of left-sided chest pain. He says he was at home feeding his goats when he had an onset of left-sided pain. He was initially very sharp and quite severe but is now a dull heaviness across his left chest. He has had been having chest pain off and on for some time. He has seen Dr. Greenwood and has had a heart catheter done which he believes was normal. He does have a history of lung disease. He has bullous emphysema and has had multiple collapsed lungs. He says he only has 43% function and he is supposed to be on oxygen all the time. He also has history of idiopathic neuropathy for which he takes Lortab 10 mg 3 times a day. There is a family history of heart disease. He has a history of hypertension and diabetic since 2012. He does not smoke. He is not more short of breath than usual. There is no radiation of the pain. He has been coughing for the past week. He is not aware of any fever. He is bringing up some phlegm. PFSH Past Medical History Hx Anticoagulant Therapy: Yes (ASPIRIN) Arthritis: No Asthma: No Heart Rhythm Problems: Yes (HEART MURMUR A CHILD) Cancer: Yes (RENAL) Cardiovascular Problems: Yes High Cholesterol: Yes Chemotherapy: No Chest Pain: No Congestive Heart Failure: No COPD: Yes Cerebrovascular Accident: No Coronary Artery Disease: No Diabetes: Yes Diminished Hearing: Yes (BILAT HEARING AIDS) Endocrine: Yes Gastrointestinal Disorders: Yes (GERD) GERD: Yes (GERD) Genitourinary: Yes Hepatitis: No Hiatal Hernia: No Hypertension: Yes Immune Disorder: No Kidney Stones: No Musculoskeletal: Yes Neurologic: Yes (NEUROPATHY, BILAT LEGS) Psychiatric: No Reproductive: No Respiratory: Yes Immunizations Current: Yes Migraines: No Radiation Therapy: No Renal Failure: No Seizures: No Sleep Apnea: Yes Thyroid Disease: No Ulcer: Yes Past Surgical History Abdominal Surgery: Yes (GALLBLADDER) AICD: No Arteriovenous Shunt: No Cardiac Surgery: No Cholecystectomy: Yes Ear Surgery: Yes (TUBES BL) Endocrine Surgery: No Eye Surgery: No Genitourinary Surgery: Yes (RENAL MASS BIOPSY AND CYRO) Gynecologic Surgery: No Hysterectomy: No Insulin Pump: No Joint Replacement: No Oral Surgery: Yes (TONSILLECTOMY) Pacemaker: No Thoracic Surgery: Yes (RIGHT LOBECTOMY) Tonsillectomy: Yes Other Surgery: Yes (UNDER RIGHT AXILLA REMOVED ABCESS) Social History Alcohol Use: No Tobacco Use: No (QUIT JANUARY 2013) Substance Use: No Allergies-Medications (Allergen,Severity, Reaction): Coded Allergies: Nonsteroidal Anti-Inflammatory Agts (Verified Adverse Reaction, Unknown, Bleeding, 12/29/16) GI BLEEDING Reported Meds & Prescriptions Reported Meds & Active Scripts Active Reported Breo Ellipta Inh (Fluticasone/Vilanterol) 100-25 Mcg/Act Inh 1 Puff INH DAILY Use daily at the same time. Lecithin 1,200 Mg Cap PO Potassium Gluconate 595 Mg Tab 1 Tab PO DAILY Vitamin B Complex (B-Complex Vitamins) 1 Tab 1 Tab PO DAILY Fish Oil 1000 mg (Energy-3 Fatty Acids) 1 Cap Cap 1 Cap PO DAILY Aspirin 81 (Aspirin) 81 Mg Tabdr 81 Mg PO DAILY B-12 (Cyanocobalamin) 1,000 Mcg Cap 1,000 Mcg PO DAILY Calcium & Magnesium + Zinc (Klvazvd-Mlsvuiono-Xhla) 334-134-5 Mg Tab 1 Tab PO DAILY C-500 (Ascorbic Acid) 500 Mg Tab 1 Tab PO TID Albuterol Neb (Albuterol Sulfate) 2.5 Mg/0.5 Ml Neb 2.5 Mg NEB Q4HR NEB PRN Note: The Albuterol Sulfate Inhalation Solution is concentrated and must be diluted. Read complete instructions carefully before using. Ventolin Hfa 18 GM Inh (Albuterol Sulfate) 90 Mcg/Act Aer 2 Puff INH Q4H PRN Metformin (Metformin HCl) 500 Mg Tab 500 Mg PO BIDPC With meals Lisinopril 2.5 Mg Tab 2.5 Mg PO DAILY Omeprazole 20 Mg Tab 20 Mg PO DAILY Gemfibrozil 600 Mg Tab 600 Mg PO BIDAC Take 30 minutes prior to breakfast and dinner. Amitriptyline (Amitriptyline HCl) 50 Mg Tab 50 Mg PO HS Hydrocodone-Acetaminophen 10-325 mg Tab 1 Tab PO Q6H PRN Baclofen 20 Mg Tab 20 Mg PO TID Gabapentin 600 Mg Tab 600 Mg PO TID Review of Systems General / Constitutional: No: Fever, Chills Eyes: No: Diploplia, Blurred Vision HENT: No: Headaches Cardiovascular: Positive: Chest Pain or Discomfort Respiratory: Positive: Cough, Shortness of Breath Gastrointestinal: No: Vomiting, Diarrhea Genitourinary: No: Urgency, Frequency Musculoskeletal: No: Myalgias Skin: No Rash, No Itching Neurologic: Positive: Sensory Disturbance Hematologic/Lymphatic: No: Easy Bruising Physical Exam Narrative GENERAL: He developed male SKIN: Focused skin assessment warm/dry. HEAD: Atraumatic. Normocephalic. EYES: Pupils equal and round. No scleral icterus. No injection or drainage. ENT: No nasal bleeding or discharge. Mucous membranes pink and moist. NECK: Trachea midline. No JVD. CARDIOVASCULAR: Regular rate and rhythm. No murmur appreciated. RESPIRATORY: No accessory muscle use. Occasional breath sounds diminished GASTROINTESTINAL: Abdomen soft, non-tender, nondistended. Hepatic and splenic margins . Breanot palpable. MUSCULOSKELETAL: No obvious deformities. No clubbing. No cyanosis. No edema. NEUROLOGICAL: Awake and alert. No obvious cranial nerve deficits. Motor grossly within normal limits. Normal speech. PSYCHIATRIC: Appropriate mood and affect; insight and judgment normal. Data Data Last Documented VS Vital Signs Date Time Temp Pulse Resp B/P Pulse Ox O2 Delivery O2 Flow Rate FiO2 12/29/16 21:09 96 18 102/66 94 12/29/16 19:50 Nasal Cannula 2 12/29/16 19:47 98.0 Orders Electrocardiogram (12/29/16 19:46) Complete Blood Count With Diff (12/29/16 19:46) Basic Metabolic Panel (Bmp) (12/29/16 19:46) Troponin I (12/29/16 19:46) Urinalysis - C+S If Indicated (12/29/16 19:46) Magnesium (Mg) (12/29/16 19:46) Chest, Single Ap (12/29/16 19:46) Ondansetron Inj (Zofran Inj) (12/29/16 20:00) Morphine Inj (Morphine Inj) (12/29/16 20:00) Amoxicillin (Trimox) (12/29/16 21:45) Labs Laboratory Tests Test 12/29/16 20:00 White Blood Count 11.6 TH/MM3 Red Blood Count 4.52 MIL/MM3 Hemoglobin 13.8 GM/DL Hematocrit 41.0 % Mean Corpuscular Volume 90.7 FL Mean Corpuscular Hemoglobin 30.5 PG Mean Corpuscular Hemoglobin 33.6 % Concent Red Cell Distribution Width 12.2 % Platelet Count 279 TH/MM3 Mean Platelet Volume 8.4 FL Neutrophils (%) (Auto) 64.1 % Lymphocytes (%) (Auto) 26.9 % Monocytes (%) (Auto) 5.7 % Eosinophils (%) (Auto) 2.7 % Basophils (%) (Auto) 0.6 % Neutrophils # (Auto) 7.4 TH/MM3 Lymphocytes # (Auto) 3.1 TH/MM3 Monocytes # (Auto) 0.7 TH/MM3 Eosinophils # (Auto) 0.3 TH/MM3 Basophils # (Auto) 0.1 TH/MM3 CBC Comment DIFF FINAL Differential Comment Sodium Level 140 MEQ/L Potassium Level 4.6 MEQ/L Chloride Level 105 MEQ/L Carbon Dioxide Level 26.3 MEQ/L Anion Gap 9 MEQ/L Blood Urea Nitrogen 18 MG/DL Creatinine 0.77 MG/DL Estimat Glomerular Filtration 105 ML/MIN Rate Random Glucose 199 MG/DL Calcium Level 8.9 MG/DL Magnesium Level 2.0 MG/DL Troponin I LESS THAN 0.02 NG/ML MDM Medical Decision Making Medical Screen Exam Complete: Yes Emergency Medical Condition: Yes Medical Record Reviewed: Yes Differential Diagnosis Differential includes coronary artery disease, bronchitis, COPD Narrative Course This gentleman has had a recent cardiac catheter he says in October of this year by Dr. Greenwood. His EKG and troponin are normal. Chest x-ray does show some increased density at the right base which may be atelectasis or possibly an pain after some morphine. He appears quite stable and does not appear in distress. He has had cardiac workup which is negative. Impression is bronchitis. Diagnosis Primary Impression: Bronchitis Additional Impression: COPD (chronic obstructive pulmonary disease) Qualified Code: J43.9 - Pulmonary emphysema, unspecified emphysema type Scripts Amoxicillin 500 Mg [id number] Mg PO TID #30 TAB Ref 0 Prov:Cruz Perdomo MD 12/29/16 Disposition: 01 DISCHARGE HOME Condition: Stable Cruz Perdomo MD Dec 29, 2016 19:57
[2016-12-29] MEDS ORDERED: ONDANSETRON HCL 4 MG/2 ML VIAL IV PUSH ONE (20:00)
[2016-12-29] MEDS ORDERED: MORPHINE SULFATE 8 MG/ML INJ IV PUSH ONE (20:00)
[2016-12-29 20:10] LABS: AUTOMATED NEUTROPHIL # 7.4 TH/MM3 (1.8-7.7); BASOPHIL # 0.1 TH/MM3 (0-0.2); BASOPHIL % 0.6 % (0.0-2.0); EOSINOPHIL # 0.3 TH/MM3 (0-0.4); EOSINOPHIL % 2.7 % (0.0-4.0); LYMPH % 26.9 % (9.0-44.0); LYMPHOCYTE # 3.1 TH/MM3 (1.0-4.8); MEAN CELL VOLUME 90.7 FL (80.0-100.0); MEAN CORPUSCULAR HEMOGLOBIN 30.5 PG (27.0-34.0); MEAN CORPUSCULAR HGB CONC 33.6 % (32.0-36.0); MONO % 5.7 % (0.0-8.0); NEUT % 64.1 % (16.0-70.0); PLATELET COUNT 279 TH/MM3 (150-450); RED BLOOD COUNT 4.52 MIL/MM3 (4.50-5.90); RED CELL DISTRIBUTION WIDTH 12.2 % (11.6-17.2); WHITE BLOOD COUNT 11.6 TH/MM3 (4.0-11.0)
[2016-12-29 20:12] LABS: HEMO FLAGS DIFF FINAL
[2016-12-29 20:17] LABS: CHLORIDE 105 MEQ/L (98-107); POTASSIUM 4.6 MEQ/L (3.5-5.1); SODIUM (NA) 140 MEQ/L (136-145)
[2016-12-29 20:20] LABS: ANION GAP 9 MEQ/L (5-15); BICARBONATE 26.3 MEQ/L (21.0-32.0)
[2016-12-29 20:21] LABS: BLOOD UREA NITROGEN 18 MG/DL (7-18)
[2016-12-29 20:24] LABS: GLOMERULAR FILTRATION RATE 105 ML/MIN (>89)
--- NOTE | 2016-12-29 21:02 | RADHPO ---
EXAM DATE/TIME: 12/29/2016 20:19 [facility] COMPARISON: CHEST SINGLE AP, August 08, 2016, 0:40. INDICATIONS : Chest pain. MEDICAL HISTORY : Hypertension. Heart murmur SURGICAL HISTORY : Lobectomy. ENCOUNTER: Initial ACUITY: 1 day PAIN SCORE: 8/10 LOCATION: Bilateral chest FINDINGS: The heart size is normal. There is a paucity of markings seen in the upper lungs bilaterally likely secondary to bullous disease. This pattern was present previously. There is increased density at the mid and lower lungs bilaterally being worse on the right. This pattern appears stable. A significa nt effusion is not clearly seen. There do appear to be possible lung kinza seen at the medial righ t upper lung. CONCLUSION: 1. Suspected prominent bullous disease in the upper lungs. 2. Mild increased density identified at the bases being worse on the right representing a combination of atelectasis or mild consolidation. This pattern does appear stable. This would be more consistent with atelectasis. Cahd Chowdhury MD on December 29, 2016 at 20:42 Board Certified Radiologist. This report was verified electronically.
[2016-12-29 21:09] VITALS: BP 102/66; PULSE 96; RESP 18; O2SAT 94
[2016-12-29] MEDS ORDERED: AMOXICILLIN (TRIHYDRATE) 500 MG CAP PO ONE (21:45)
[2016-12-29] MEDS ORDERED: AMOX500T PO (21:50)
[2016-12-29 22:28] VITALS: BP 114/64; PULSE 94; RESP 18; O2SAT 94
--- NOTE | 2016-12-30 14:32 | EKG ---
Date Performed: 12/29/2016 Time Performed: 19:34:24 PTAGE: 56 years EKG: Sinus tachycardia with PVC(s). Compared to prior tracing no significant change Normal ECG e xcept for rate PREVIOUS TRACING : 09/28/2016 06.01 DOCTOR: Woody Gonsalez Interpretating Date/Time 12/30/2016 14:32:17
== END 2016-12-29 22:40 | disposition home or self-care (01) ==
LOC: PHED 19:41
DX: J44.9 Chronic obstructive pulmonary disease, unspecified (principal); R00.0 Tachycardia, unspecified; I49.3 Ventricular premature depolarization; I10 Essential (primary) hypertension; E11.9 Type 2 diabetes mellitus without complications; E78.00 Pure hypercholesterolemia, unspecified; K21.9 Gastro-esophageal reflux disease without esophagitis; G62.9 Polyneuropathy, unspecified; Z79.82 Long term (current) use of aspirin; Z87.891 Personal history of nicotine dependence
CPT/HCPCS: 71010; 80048; 83735; 84484; 85025; 93005; 96374; 96375; 99285; J2270; J2405

== ENCOUNTER 2018-03-14 14:25 | Day surgery (SDC) | payer MEDICARE, MEDICAID ==
[~2018-03-14 14:25] MED LIST changes: +AMOX500T PO; -ASPI-110 PO; +ASPI1TAB57 PO; -OMEP20TA PO; +OMEP20TA93 PO
[2018-03-14] MEDS ORDERED: CHLORHEXIDINE GLUCONATE 2 % 1 PACK (2 CLOTHS) TOPICAL SCH (15:00)
[2018-03-14] MEDS ORDERED: ceFAZolin 2 GM PREMIX 50 ML IV SCH (15:00)
[2018-03-14] MEDS ORDERED: MUPIROCIN 2% OINT 1 APPLIC/GM SYR NASAL SCH (15:00)
[2018-03-14] MEDS ORDERED: POVIDONE IODINE 5% (ANTISEPSIS KIT) 4 APPLICATIONS EACH NARE SCH (15:00)
[2018-03-14] MEDS ORDERED: METO25TA3 PO (15:09)
[2018-03-14] MEDS ORDERED: SITA1TAB2 PO (15:09)
[2018-03-14] MEDS ORDERED: ATOR20TA15 PO (15:09)
[2018-03-14] MEDS ORDERED: VITD400 PO (15:09)
[2018-03-14] MEDS ORDERED: VITA250T3 PO (15:09)
[2018-03-14] MEDS ORDERED: LECI12002 (15:09)
[2018-03-14] MEDS ORDERED: MIDAZOLAM HCL 5 MG/ML VIAL (1 ML) ONE (15:14)
--- NOTE | 2018-03-14 16:25 | MA ---
cc: Oc Koehler MD, Surya P MD DATE: 03/14/2018 DATE OF PROCEDURE: 03/14/2018. INDICATIONS: Near-syncope, palpitations. PROCEDURES PERFORMED: 1. 15 minutes moderate IV sedation. 2. Loop recorder insertion. DESCRIPTION OF PROCEDURE: The patient was brought to the DOC Unit in the postabsorptive state after informed consent was obtained. 2 mg of Versed and 25 mcg of fentanyl and was given for moderate IV sedation. Next, a [employer] LIN[employer] loop recorder was inserted subcutaneously in the left chest. The patient tolerated the procedure well without any apparent complication. Tachybrady pause and atrial fibrillation detection was enabled. The initial R-wave was 0.24 millivolts. The serial number was [id number]. MD RASHAAD Veliz/IDA , 04:14 PM , 04:24 PM
== END 2018-03-14 17:12 | disposition home or self-care (01) ==
LOC: HDOC 14:25 → HDIC 14:27 → HDOC 17:12
PROVIDERS: ATTEND Nuclear Medicine Nuclear Cardiology
DX: R55 Syncope and collapse (principal); R00.2 Palpitations
CPT/HCPCS: 33282; 99152; C1764; J0690; J2250; J3010

== ENCOUNTER 2018-06-05 17:20 | Inpatient (IN) ==
[2018-06-05] MEDS ORDERED: Morphine Inj 4 MG/ML Vial IV.PUSH ONE (17:32)
[2018-06-05] MEDS ORDERED: MethylPREDNISolone Sod Succinate Inj 125 MG/2 ML Vial IV.PUSH ONE (17:33)
--- NOTE | 2018-06-05 17:40 | ED ---
HPI General Chief Complaint: Chest Pain Stated Complaint: Chest Pain Time Seen by Provider: 06/05/18 17:40 History of Present Illness HPI narrative: This patient complains of chest pain. Dislocated in the left upper chest. Also includes his left upper back and shoulder. It is a sharp stabbing pain. It is worse with deep breath. Duration 3 hours. Symptoms are severe. No alleviating factors. Taking a breath brings the pain on. Complete Quality Measures for STEMI Alert Patients Related Data Home Medications Medication Instructions Recorded Confirmed Ca carb-Ca gluc-Mg ox-Mg gluco 1 tab PO BID 04/30/18 06/05/18 [Calcium Magnesium] Home O2 2 l INHALATION DAILY 04/30/18 06/05/18 amitriptyline 50 mg PO HS 04/30/18 06/05/18 ascorbic acid (vitamin C) [Vitamin 3 tab PO DAILY 04/30/18 06/05/18 C] aspirin [Aspir-81] 81 mg PO DAILY 04/30/18 06/05/18 atorvastatin 40 mg PO DAILY 04/30/18 06/05/18 baclofen 20 mg PO TID 04/30/18 06/05/18 cholecalciferol (vitamin D3) 400 unit PO DAILY 04/30/18 06/05/18 [Vitamin D3] gabapentin 600 mg PO TID 04/30/18 06/05/18 gemfibrozil 600 mg PO BID 04/30/18 06/05/18 hydrocodone-acetaminophen [[place]] 1 tab PO Q4H PRN 04/30/18 06/05/18 lecithin 1,200 mg PO DAILY 04/30/18 06/05/18 lisinopril 2.5 mg PO DAILY 04/30/18 06/05/18 metformin 1,000 mg PO BID 04/30/18 06/05/18 metoprolol tartrate 50 mg PO BID 04/30/18 06/05/18 multivitamin [Men's Multi-Vitamin] 1 tab PO DAILY 04/30/18 06/05/18 omeprazole 20 mg PO DAILY 04/30/18 06/05/18 potassium gluconate 595 mg PO DAILY 04/30/18 06/05/18 sitagliptin [Januvia] 100 mg PO DAILY 04/30/18 06/05/18 vitamin X21-awbak acid 1 tab PO DAILY 04/30/18 06/05/18 zinc 50 mg PO QID 04/30/18 06/05/18 Allergies Allergy/AdvReac Type Severity Reaction Status Date / Time diclofenac AdvReac Unknown Bleeding Unverified 05/08/17 12:40 etodolac AdvReac Unknown Bleeding Unverified 05/08/17 12:40 flurbiprofen AdvReac Unknown Bleeding Unverified 05/08/17 12:40 ibuprofen AdvReac Unknown Bleeding Unverified 05/08/17 12:40 indomethacin AdvReac Unknown Bleeding Unverified 05/08/17 12:40 ketoprofen AdvReac Unknown Bleeding Unverified 05/08/17 12:40 ketorolac AdvReac Unknown Bleeding Unverified 05/08/17 12:40 naproxen AdvReac Unknown Bleeding Unverified 05/08/17 12:40 oxaprozin AdvReac Unknown Bleeding Unverified 05/08/17 12:40 Review of Systems ROS: all other systems reviewed are negative [facility] Medical History Medical History COPD (chronic obstructive pulmonary disease) (Acute) GERD (gastroesophageal reflux disease) (Acute) HLD (hyperlipidemia) (Acute) History of GI bleed (Acute) Hypertension (Acute) Obstructive sleep apnea (Acute) Paroxysmal supraventricular tachycardia (Acute) Renal cancer (Acute) Type 2 diabetes mellitus (Acute) Social History Social History Substance History: No History of Abuse Smoking Status: Former smoker How Often Do You Have a Drink Containing Alcohol: Never Recent Travel in [facility] within the Last 8 Weeks: No Recent Out of Country Travel within the Last 8 Weeks: No Exam Narrative Exam Narrative: GENERAL: Well-nourished, well-developed patient with pleuritic chest pain SKIN: Focused skin assessment reveals no rash and nodules. Skin is Warm and dry. HEAD: Atraumatic. Normocephalic. EYES: Pupils equal and round. No scleral icterus. No injection or drainage. ENT: No nasal bleeding or discharge. Mucous membranes pink and moist. NECK: Trachea midline. No JVD. CARDIOVASCULAR: Regular rate and rhythm. No murmur appreciated. RESPIRATORY: No accessory muscle use. Faint expiratory wheeze bilaterally. Breath sounds equal bilaterally. GASTROINTESTINAL: Abdomen soft, non-tender, nondistended. Hepatic and splenic margins not palpable. MUSCULOSKELETAL: No obvious deformities. No clubbing. No cyanosis. No edema. NEUROLOGICAL: Awake and alert. No obvious cranial nerve deficits. Motor grossly within normal limits. Normal speech. PSYCHIATRIC: Appropriate mood and affect; insight and judgment normal. Course Initial Documented Vital Signs Pulse Rate 114 H 06/05/18 17:44 Respiratory Rate 20 06/05/18 17:44 Last Documented Vital Signs Temperature 99.1 F 06/05/18 17:59 Pulse Rate 127 H 18 17:59 Respiratory Rate 20 18 17:59 Blood Pressure 155/83 H 18 17:59 Pulse Oximetry 93 L 06/05/18 17:59 Medical Decision Making MDM Narrative Medical decision making narrative: IV placed and labs sent. I reviewed his EKG which shows sinus tachycardia without ST elevation I reviewed his chest x-ray which shows bullous changes and some chronic interstitial changes but no obvious pneumothorax. I was concerned about that so I ordered CT of the chest and there is no pneumothorax seen. Labs are reviewed. His leukocytosis. Metabolic studies are normal. Cardiac enzymes are normal. This pain is clearly noncardiac but he is having a COPD exacerbation with wheezing and dyspnea and sinus tachycardia I gave him multiple nebulizers and IV steroids. Saturations are weak I reviewed with hospitalist and he will be in observation on telemetry for acute exacerbation of chronic COPD with chest pain D-dimer 0.4 Medical Screen Exam Complete: Yes Emergency Medical Condition: Yes Differential Diagnosis Differential Diagnosis: Pneumothorax, COPD, pleurisy Medical Records Medical records reviewed: Yes I reviewed the patient's medical records. Lab Data Lab results reviewed: Yes I reviewed the patient's lab results. Result diagrams: 06/05/18 17:40 06/05/18 17:40 Lab Results 06/05/18 06/05/18 06/05/18 Range/Units 17:40 17:40 17:40 CBC w Diff Auto diff final WBC 15.8 H (4.0-11.0) th/mm3 RBC 4.79 (4.50-5.90) mil/mm3 Hgb 15.2 (13.0-17.0) gm/dL Hct 44.3 (39.0-51.0) % MCV 92.5 (80.0-100.0) fL MCH 31.7 (27.0-34.0) pg MCHC 34.3 (32.0-36.0) % RDW 11.9 (11.6-17.2) % Plt Count 224 (150-450) th/mm3 MPV 8.7 (7.0-11.0) fL Neut % (Auto) 76.4 H (16.0-70.0) % Lymph % (Auto) 13.2 (9.0-44.0) % [place] % (Auto) 8.2 H (0.0-8.0) % Eos % (Auto) 1.5 (0.0-4.0) % Baso % (Auto) 0.7 (0.0-2.0) % Neut # (Auto) 12.1 H (1.8-7.7) th/mm3 Lymph # (Auto) 2.1 (1.0-4.8) th/mm3 [place] # (Auto) 1.3 H (0.0-0.9) th/mm3 Eos # (Auto) 0.2 (0.0-0.4) th/mm3 Baso # (Auto) 0.1 (0.0-0.2) th/mm3 WBC Differential . Differential Comment . PT 10.6 (9.8-11.6) sec INR 1.0 Ratio APTT 26.4 (24.3-30.1) sec D-Dimer Quant (PE/DVT) 0.40 (0.00-0.50) mg/L FEU Sodium 136 (136-145) meq/L Potassium 4.0 (3.5-5.1) meq/L Chloride 102 (98-107) meq/L Carbon Dioxide 22.7 (21.0-32.0) meq/L Anion Gap 11 (5-15) meq/L BUN 15 (7-18) mg/dL Creatinine 0.82 (0.60-1.30) mg/dL Estimated GFR Greater than 89 (>89) mL/min Random Glucose 138 H (74-106) mg/dL Calcium 9.7 (8.5-10.1) mg/dL Total Bilirubin 0.4 (0.2-1.0) mg/dL AST 65 H (15-37) U/L ALT 114 H (12-78) U/L Alkaline Phosphatase 89 (45-117) U/L Total Creatine Kinase (39-308) U/L CK-MB (CK-2) (0.5-3.6) ng/mL Troponin I (0.02-0.05) ng/mL Total Protein 8.4 H (6.4-8.2) g/dL Albumin 4.3 (3.4-5.0) g/dL 06/05/18 Range/Units 17:40 CBC w Diff WBC (4.0-11.0) th/mm3 RBC (4.50-5.90) mil/mm3 Hgb (13.0-17.0) gm/dL Hct (39.0-51.0) % MCV (80.0-100.0) fL MCH (27.0-34.0) pg MCHC (32.0-36.0) % RDW (11.6-17.2) % Plt Count (150-450) th/mm3 MPV (7.0-11.0) fL Neut % (Auto) (16.0-70.0) % Lymph % (Auto) (9.0-44.0) % [place] % (Auto) (0.0-8.0) % Eos % (Auto) (0.0-4.0) % Baso % (Auto) (0.0-2.0) % Neut # (Auto) (1.8-7.7) th/mm3 Lymph # (Auto) (1.0-4.8) th/mm3 [place] # (Auto) (0.0-0.9) th/mm3 Eos # (Auto) (0.0-0.4) th/mm3 Baso # (Auto) (0.0-0.2) th/mm3 WBC Differential Differential Comment PT (9.8-11.6) sec INR Ratio APTT (24.3-30.1) sec D-Dimer Quant (PE/DVT) (0.00-0.50) mg/L FEU Sodium (136-145) meq/L Potassium (3.5-5.1) meq/L Chloride (98-107) meq/L Carbon Dioxide (21.0-32.0) meq/L Anion Gap (5-15) meq/L BUN (7-18) mg/dL Creatinine (0.60-1.30) mg/dL Estimated GFR (>89) mL/min Random Glucose (74-106) mg/dL Calcium (8.5-10.1) mg/dL Total Bilirubin (0.2-1.0) mg/dL AST (15-37) U/L ALT (12-78) U/L Alkaline Phosphatase (45-117) U/L Total Creatine Kinase 248 (39-308) U/L CK-MB (CK-2) 2.1 (0.5-3.6) ng/mL Troponin I Less than 0.02 L (0.02-0.05) ng/mL Total Protein (6.4-8.2) g/dL Albumin (3.4-5.0) g/dL Imaging Data Attestation: I personally reviewed and interpreted this imaging study as follows : Radiologist's impression: Chest X-Ray 06/05/18 17:32 CONCLUSION: 1. New cardiac loop recorder projecting over the left hemithorax. 2. Extensive bullous disease again seen in the upper lungs, left greater than right. 3. Presumed postoperative changes of the right upper lung. 4. Reticular and patchy opacities again seen in the mid and lower lungs with probable pleural thickening, not significantly changed since prior exam. Chest CT 06/05/18 18:18 CONCLUSION: 1. No pneumothorax. 2. Severe underlying emphysema and bullous change greatest in the left lung apex. 3. Severe hepatic steatosis. Discharge Plan Discharge Disposition Patient Disposition: 30 Still Patient Discharge Details Diagnosis: COPD with acute exacerbation, Chest pain in adult Physicians Team ED Provider: Florencio Blevins Rxs /Orders / Referrals /Forms Prescriptions: No Action multivitamin [Men's Multi-Vitamin] Tablet 1 tab PO DAILY RF: 0 gabapentin 600 mg Tablet 600 mg PO TID RF: 0 atorvastatin 20 mg Tablet 40 mg PO DAILY RF: 0 lecithin 1,200 mg Capsule 1,200 mg PO DAILY RF: 0 hydrocodone-acetaminophen [[place]] 10-325 mg Tablet 1 tab PO Q4H PRN (Reason: Pain) RF: 0 aspirin [Aspir-81] 81 mg Tablet,Delayed Release (Dr/Ec) 81 mg PO DAILY RF: 0 amitriptyline 50 mg Tablet 50 mg PO HS RF: 0 baclofen 20 mg Tablet 20 mg PO TID RF: 0 ascorbic acid (vitamin C) [Vitamin C] 500 mg Tablet 3 tab PO DAILY RF: 0 gemfibrozil 600 mg Tablet 600 mg PO BID RF: 0 metformin 1,000 mg Tablet 1,000 mg PO BID RF: 0 metoprolol tartrate 50 mg Tablet 50 mg PO BID RF: 0 omeprazole 20 mg Capsule,Delayed Release(Dr/Ec) 20 mg PO DAILY RF: 0 zinc 50 mg Tablet 50 mg PO QID RF: 0 lisinopril 2.5 mg Tablet 2.5 mg PO DAILY RF: 0 cholecalciferol (vitamin D3) [Vitamin D3] 400 unit Capsule 400 unit PO DAILY RF: 0 sitagliptin [Januvia] 100 mg Tablet 100 mg PO DAILY RF: 0 potassium gluconate 595 mg (99 mg) Tablet 595 mg PO DAILY RF: 0 vitamin Q05-afldv acid 500-400 mcg Tablet 1 tab PO DAILY RF: 0 Ca carb-Ca gluc-Mg ox-Mg gluco [Calcium Magnesium] 500 mg calcium -250 mg Tablet 1 tab PO BID RF: 0 Home O2 inhaler 2 l Inhalation DAILY RF: 0 Discharge Instructions Patient Printed Instructions: Chest Pain (ED) Status ED Status: Admitted Patient
[2018-06-05 17:54] LABS: Baso # (Auto) 0.1 th/mm3 (0.0-0.2); Baso % (Auto) 0.7 % (0.0-2.0); Eos # (Auto) 0.2 th/mm3 (0.0-0.4); Eos % (Auto) 1.5 % (0.0-4.0); Hematocrit 44.3 % (39.0-51.0); Hemoglobin 15.2 gm/dL (13.0-17.0); Lymph # (Auto) 2.1 th/mm3 (1.0-4.8); Lymph % (Auto) 13.2 % (9.0-44.0); Mean Corpuscular HGB Conc 34.3 % (32.0-36.0); Mean Corpuscular Hemoglobin 31.7 pg (27.0-34.0); Mean Corpuscular Volume 92.5 fL (80.0-100.0); Mean Platelet Volume 8.7 fL (7.0-11.0); Mono # (Auto) 1.3 th/mm3 (0.0-0.9); Mono % (Auto) 8.2 % (0.0-8.0); Neut # (Auto) 12.1 th/mm3 (1.8-7.7); Neut % (Auto) 76.4 % (16.0-70.0); Platelet Count 224 th/mm3 (150-450); Red Blood Count 4.79 mil/mm3 (4.50-5.90); Red Cell Distribution Width 11.9 % (11.6-17.2); White Blood Count 15.8 th/mm3 (4.0-11.0)
[2018-06-05 17:56] LABS: Chloride 102 meq/L (98-107); Sodium 136 meq/L (136-145)
[2018-06-05 17:59] LABS: Albumin 4.3 g/dL (3.4-5.0); Anion Gap 11 meq/L (5-15); Calcium 9.7 mg/dL (8.5-10.1); Carbon Dioxide 22.7 meq/L (21.0-32.0); Glucose,Random 138 mg/dL (74-106)
[2018-06-05 18:00] LABS: Blood Urea Nitrogen 15 mg/dL (7-18)
--- NOTE | 2018-06-05 18:01 | XR ---
EXAM DATE: 06/05/2018 5:49 PM EDT AGE/SEX: 57 years / Male INDICATIONS: Short of breath. CLINICAL DATA: This is the patient's initial encounter. Patient reports that signs and symptoms have been present for 1 day and indicates a pain score of 0/10. MEDICAL/SURGICAL HISTORY: Hypertension. Heart murmur. Lobectomy. COMPARISON: [facility], CHEST SINGLE AP, 12/29/2016. . FINDINGS: A single AP view of the chest demonstrates a relative paucity of lung markings in the upper lobes, co nsistent with large bullae. A discrete pneumothorax is not identified. Presumed postoperative changes of the right upper lung. Reticular and patchy opacities again seen in the mid and lower lungs. There may be slightly improved aeration of the medial lung bases. Stable inferior pleural fluid/thickening , right greater than left. The cardiomediastinal contours are unremarkable. New cardiac loop recorde r projecting over the left lower hemithorax. CONCLUSION: 1. New cardiac loop recorder projecting over the left hemithorax. 2. Extensive bullous disease again seen in the upper lungs, left greater than right. 3. Presumed postoperative changes of the right upper lung. 4. Reticular and patchy opacities again seen in the mid and lower lungs with probable pleural thicke lobo, not significantly changed since prior exam. Electronically signed by: Marcela Willams MD 06/05/2018 6:00 PM EDT
[2018-06-05 18:02] LABS: Alanine Aminotransferase 114 U/L (12-78)
[2018-06-05 18:03] LABS: Aspartate Aminotransferase 65 U/L (15-37); Glomerular Filtration Rate Greater Than 89 mL/min (>89)
[2018-06-05 18:04] LABS: Total Protein 8.4 g/dL (6.4-8.2)
[2018-06-05 18:05] LABS: Alkaline Phosphatase 89 U/L (45-117)
[2018-06-05 18:08] LABS: Activated Partial Thrombo Time 26.4 sec (24.3-30.1); Prothrombin Time 10.6 sec (9.8-11.6)
[2018-06-05 18:10] LABS: D-Dimer 0.4 mg/L FEU (0.00-0.50)
[2018-06-05 18:27] LABS: Creatine Kinase 248 U/L (39-308)
[2018-06-05 18:39] LABS: Creatine Kinase MB 2.1 ng/mL (0.5-3.6)
--- NOTE | 2018-06-05 18:52 | CT ---
EXAM DATE: 06/05/2018 6:39 PM EDT AGE/SEX: 57 years / Male INDICATIONS: Evaluate for pneumothorax. Chest pain with inspiration. Abnormal chest x-ray with exten sive bullous change in the upper lobes. CLINICAL DATA: This is the patient's initial encounter. Patient reports that signs and symptoms have been present for 1 day and indicates a pain score of 8/10. MEDICAL/SURGICAL HISTORY: Chronic obstructive pulmonary disease. Diabetes mellitus type II. Hyper tension. Renal carcinoma. Lobectomy. Cholecystectomy. Renal ablation. Loop recorder. RADIATION DOSE: 29.98 CTDI (mGy) COMPARISON: [facility], CT PULMONARY ANGIOGRAM, 09/27/2016. . TECHNIQUE: Multiple contiguous axial images were obtained through the chest without contrast. Image s were obtained in suspended respiration using multiple row detector helical technique. Using automa leatha exposure control and adjustment of the mA and/or kV according to patient size, radiation dose was kept as low as reasonably achievable to obtain optimal diagnostic quality images. DICOM format imag e data is available electronically for review and comparison. FINDINGS: Lungs: Lungs remain hyperinflated with severe emphysema and bullous change greatest in the left uppe r lobe. There is no pneumothorax. No new areas of consolidation are identified. There are no distinct nodules or masses. Mediastinum: There is good visualization of the great vessels of the middle mediastinum. No evidenc e of mediastinal or hilar adenopathy/mass. Pleurae: No evidence of focal thickening or pleural effusion. Axillae: Unremarkable. Bony Structures: Unremarkable. Miscellaneous: The examination was extended to include the upper abdomen, and both adrenal glands ar e normal in size and configuration. Moderate hepatic steatosis is again noted. CONCLUSION: 1. No pneumothorax. 2. Severe underlying emphysema and bullous change greatest in the left lung apex. 3. Severe hepatic steatosis. Electronically signed by: Jamar Calderon MD 06/05/2018 6:50 PM EDT
[2018-06-05] MEDS ORDERED: Acetaminophen 325 MG Tablet PO PRN (20:05)
[2018-06-05] MEDS ORDERED: CA CARB CA GLUC GLUCO PO SCH (21:00)
[2018-06-05] MEDS: Gemfibrozil 600 MG Tablet PO SCH (21:29)
[2018-06-05] MEDS: Metoprolol Tartrate 50 MG Tablet PO SCH (21:29)
[2018-06-05] MEDS: Enoxaparin Inj 40 MG/0.4 ML Syringe SQ SCH (21:30)
[2018-06-05] MEDS: Morphine Sulfate Inj 2 MG/ML Vial IV.PUSH PRN (23:58)
[2018-06-06] MEDS: MethylPREDNISolone Sod Succinate Inj 40 MG/ML Vial IV.PUSH SCH ×3 (02:05→17:42)
[2018-06-06] MEDS: Morphine Sulfate Inj 2 MG/ML Vial IV.PUSH PRN ×4 (06:32→22:57)
[2018-06-06 07:30] LABS: Baso % (Auto) 0.1 % (0.0-2.0); Eos % (Auto) 0.1 % (0.0-4.0); Hematocrit 41.7 % (39.0-51.0); Hemoglobin 14.4 gm/dL (13.0-17.0); Lymph # (Auto) 1.2 th/mm3 (1.0-4.8); Lymph % (Auto) 11.5 % (9.0-44.0); Mean Corpuscular HGB Conc 34.5 % (32.0-36.0); Mean Corpuscular Hemoglobin 31.4 pg (27.0-34.0); Mean Corpuscular Volume 91.2 fL (80.0-100.0); Mono # (Auto) 0.2 th/mm3 (0.0-0.9); Mono % (Auto) 1.5 % (0.0-8.0); Neut # (Auto) 9.1 th/mm3 (1.8-7.7); Neut % (Auto) 86.8 % (16.0-70.0); Platelet Count 212 th/mm3 (150-450); Red Blood Count 4.57 mil/mm3 (4.50-5.90); Red Cell Distribution Width 12.8 % (11.6-17.2); White Blood Count 10.5 th/mm3 (4.0-11.0)
[2018-06-06 07:32] LABS: Chloride 102 meq/L (98-107); Potassium 4.5 meq/L (3.5-5.1); Sodium 135 meq/L (136-145)
[2018-06-06 07:36] LABS: Calcium 9.4 mg/dL (8.5-10.1)
[2018-06-06 07:37] LABS: Anion Gap 11 meq/L (5-15); Carbon Dioxide 21.6 meq/L (21.0-32.0)
[2018-06-06 07:52] LABS: Blood Urea Nitrogen 17 mg/dL (7-18); Glomerular Filtration Rate Greater Than 89 mL/min (>89); Glucose,Random 336 mg/dL (74-106)
--- NOTE | 2018-06-06 08:34 | P.HPIM ---
History of Present Illness Service: [facility] Primary Care Physician: Duane Morrison Chief Complaint: chest pain History of Present Illness: Mr. Arriaza is a 57 yo M with PMH COPD, HTN, GERD, DM, prior GI bleed who presented to [facility] 06/05 with chest pain. Mr. Arriaza reports having pain since yesterday; he states that he saw his [facility] (Dr. Greenwood) and was sent to the ER for respiratoruy evaluation. 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 Pain started while sitting in his recliner in his left back and radiated to left shoulder. Patient reports shortness of breath in addition to his chest pain. Patient states that his pain improved since arrival at ED until he awoke again this morning with pain. Patient currently rates his pain at 5/10 in severity. It is worse with deep breathing but constant. No exertional component. Patient has had some cough and mucus production. No recent fevers. Meds reviewed- also takes Flonase. Trilogy for breathing. Takes nebulizers PMH HTN, COPD, GI bleed, GERD, DM PSH Lobectomy from left lung Cholecystectomy Sebaceous cyst removal Rotator cuff repair SH prior smoker- 2012 no significant drinking or drug abuse - Diagnosis (1) COPD with acute exacerbation (2) Chest pain in adult Review of Systems Constitutional: Denies chills, Denies fever(s) Eyes: Denies blurry vision, Denies change in vision Ears, Nose, Mouth, and Throat: Denies nasal congestion, Denies nasal discharge, Denies sinus pressure Cardiovascular: Reports chest pain, Reports shortness of breath Respiratory: Reports cough, Reports excessive phlegm production, Reports shortness of breath Gastrointestinal: Denies abdominal pain, Denies vomiting Genitourinary: Denies urinary frequency, Denies urinary incontinence Musculoskeletal: Reports back pain (in association with chest pain) Skin/Breast: Denies lesions, Denies rash Neurologic: Denies abnormal speech, Denies confusion Psychiatric: Denies anxiety, Denies depression Hematologic/Lymphatic: Denies easy bleeding, Denies easy bruising PMFSH - History History Provided By: Patient, Significant Other - Medical History Medical History: Medical History (Last Reviewed 06/06/18 @ 07:20 by Devang Alvarado) COPD (chronic obstructive pulmonary disease) GERD (gastroesophageal reflux disease) HLD (hyperlipidemia) History of GI bleed Hypertension Obstructive sleep apnea Paroxysmal supraventricular tachycardia Renal cancer Type 2 diabetes mellitus - Tobacco History Second Hand Smoke Exposure: No Tobacco Use In Past 30 Days: No Smoking Status: Former smoker - Alcohol History How Often Do You Have a Drink Containing Alcohol: Never - Substance Use History Substance History: No History of Abuse - Travel History Recent Travel in the [place] Within the Last 8 Weeks: No Recent Travel Out of the Country Within the Last 8 Weeks: No - Immunization History Tetanus Immunization: Unsure Hx Influenza Vaccine This Season: No Medications and Allergies Active Medications: Active Medications Acetaminophen (Tylenol) 650 mg PO Q4H PRN PRN Reason: Temp > 100.4 Albuterol (Duoneb Neb (Prn)) 1 ampul NEB Q2HR NEB PRN PRN Reason: SHORTNESS OF BREATH Albuterol (Duoneb Neb (Elda)) 1 ampul NEB Q6HR WHILE AWAKE NEB [facility] Last Admin: 06/06/18 07:04 Dose: 1 ampul Amitriptyline HCl (Elavil) 50 mg PO HS [facility] Last Admin: 06/05/18 21:29 Dose: 50 mg Ascorbic Acid (Vitamin C) 1,500 mg PO DAILY [facility] Aspirin (Ecotrin) 81 mg PO DAILY [facility] Atorvastatin Calcium (Lipitor) 40 mg PO HS [facility] Last Admin: 06/05/18 21:29 Dose: Not Given Baclofen (Lioresal) 20 mg PO TID [facility] Enoxaparin Sodium (Lovenox Inj) 40 mg SQ Q24H [facility] Last Admin: 06/05/18 21:30 Dose: 40 mg Gabapentin (Neurontin) 600 mg PO TID [facility] Gemfibrozil (Lopid) 600 mg PO BID [facility] Last Admin: 06/05/18 21:29 Dose: 600 mg Lisinopril (Prinivil) 2.5 mg PO DAILY [facility] Metformin HCl (Glucophage) 1,000 mg PO BID [facility] Methylprednisolone Sodium Succinate (Solumedrol Inj) 40 mg IV.PUSH Q8H [facility] Last Admin: 06/06/18 02:05 Dose: 40 mg Metoprolol Tartrate (Lopressor) 50 mg PO BID [facility] Last Admin: 06/05/18 21:29 Dose: 50 mg Morphine Sulfate (Morphine Inj) 2 mg IV.PUSH Q3H PRN PRN Reason: pain 1 to 10 Last Admin: 06/06/18 06:32 Dose: 2 mg Ondansetron HCl (Zofran Inj) 4 mg IV.PUSH Q6H PRN PRN Reason: NAUSEA OR VOMITING Pantoprazole Sodium (Protonix) 20 mg PO DAILY [facility] Sitagliptin Phosphate (Januvia) 100 mg PO DAILY [facility] Vitamin B Complex/Vit C/Folic Acid (Nephrocaps) 1 tab PO DAILY [facility] Vitamin D (Vitamin D3) 400 unit PO DAILY [facility] Zinc Sulfate (Zinc-220) 220 mg PO DAILY [facility] Allergies Allergy/AdvReac Type Severity Reaction Status Date / Time diclofenac AdvReac Unknown Bleeding Unverified 05/08/17 12:40 etodolac AdvReac Unknown Bleeding Unverified 05/08/17 12:40 flurbiprofen AdvReac Unknown Bleeding Unverified 05/08/17 12:40 ibuprofen AdvReac Unknown Bleeding Unverified 05/08/17 12:40 indomethacin AdvReac Unknown Bleeding Unverified 05/08/17 12:40 ketoprofen AdvReac Unknown Bleeding Unverified 05/08/17 12:40 ketorolac AdvReac Unknown Bleeding Unverified 05/08/17 12:40 naproxen AdvReac Unknown Bleeding Unverified 05/08/17 12:40 oxaprozin AdvReac Unknown Bleeding Unverified 05/08/17 12:40 Home Medications Medication Instructions Recorded Confirmed Type Ca carb-Ca gluc-Mg ox-Mg gluco 1 tab PO BID 04/30/18 06/05/18 History [Calcium Magnesium] Home O2 2 l INHALATION DAILY 04/30/18 06/05/18 History amitriptyline 50 mg PO HS 04/30/18 06/05/18 History ascorbic acid (vitamin C) [Vitamin 3 tab PO DAILY 04/30/18 06/05/18 History C] aspirin [Aspir-81] 81 mg PO DAILY 04/30/18 06/05/18 History atorvastatin 40 mg PO DAILY 04/30/18 06/05/18 History baclofen 20 mg PO TID 04/30/18 06/05/18 History cholecalciferol (vitamin D3) 400 unit PO DAILY 04/30/18 06/05/18 History [Vitamin D3] gabapentin 600 mg PO TID 04/30/18 06/05/18 History gemfibrozil 600 mg PO BID 04/30/18 06/05/18 History hydrocodone-acetaminophen [[place]] 1 tab PO Q4H PRN 04/30/18 06/05/18 History lecithin 1,200 mg PO DAILY 04/30/18 06/05/18 History lisinopril 2.5 mg PO DAILY 04/30/18 06/05/18 History metformin 1,000 mg PO BID 04/30/18 06/05/18 History metoprolol tartrate 50 mg PO BID 04/30/18 06/05/18 History multivitamin [Men's Multi-Vitamin] 1 tab PO DAILY 04/30/18 06/05/18 History omeprazole 20 mg PO DAILY 04/30/18 06/05/18 History potassium gluconate 595 mg PO DAILY 04/30/18 06/05/18 History sitagliptin [Januvia] 100 mg PO DAILY 04/30/18 06/05/18 History vitamin W50-[id number] acid 1 tab PO DAILY 04/30/18 06/05/18 History zinc 50 mg PO QID 04/30/18 06/05/18 History Exam Vital signs: Vital Signs 06/05/18 17:44 06/05/18 17:59 06/05/18 19:30 Temperature 99.1 F Pulse Rate 114 H 127 H 108 H Respiratory Rate 20 20 20 Blood Pressure 155/83 H Pulse Oximetry 93 L 92 L 06/05/18 19:34 06/05/18 21:14 06/05/18 21:40 Temperature 98.0 F Pulse Rate 112 H 109 H Respiratory Rate 25 H 18 Blood Pressure 140/74 132/70 Pulse Oximetry 92 L 90 L 90 L 06/05/18 21:45 06/06/18 00:00 06/06/18 07:06 Temperature 96.3 F L Pulse Rate 114 H 92 H Respiratory Rate 22 18 Blood Pressure 127/67 Pulse Oximetry 91 L 91 L 06/06/18 07:07 06/06/18 08:00 Temperature 98.7 F Pulse Rate 88 107 H Respiratory Rate 20 19 Blood Pressure 126/62 Pulse Oximetry 91 L Intake & Output 06/05/18 06/06/18 06/06/18 18:59 06:59 18:59 Intake Total 240 / 240 Output Total 1100 / 1100 Balance -1100 / -1100 240 / 240 Weight 125.7 kg 125.7 kg Intake: Oral 240 / 240 Output: Urine 1100 / 1100 Other: Date of Last Bowel Movement 06/05/18 Weight On Admission 125.7 kg Narrative: GENERAL: No acute distress SKIN: No visible lesions EYES: EOM I. ENT: Mucus membranes moist NECK: No appreciated lymphadenopathy or thyromegaly CARDIOVASCULAR: Regular rate and rhythm without murmurs; normal perfusion RESPIRATORY: decreased breath sounds bilaterally; normal rate GASTROINTESTINAL: Abdomen soft, non-tender, nondistended. Normal bowel sounds MUSCULOSKELETAL: Grossly normal ROM and motor function NEUROLOGICAL: Awake and alert. Grossly normal cranial nerves. Grossly normal peripheral motor/sensory function PSYCHIATRIC: Appropriate mood and affect; insight and judgment normal. Results - Labs CBC & Chem 7: 06/06/18 06:27 06/06/18 06:27 Labs: Short CBC 06/05/18 06/06/18 Range/Units 17:40 06:27 WBC 15.8 H 10.5 (4.0-11.0) th/mm3 Hgb 15.2 14.4 (13.0-17.0) gm/dL Hct 44.3 41.7 (39.0-51.0) % Plt Count 224 212 (150-450) th/mm3 [facility] 06/05/18 06/06/18 17:40 06:27 Sodium 136 135 L Potassium 4.0 4.5 Chloride 102 102 Carbon Dioxide 22.7 21.6 BUN 15 17 Creatinine 0.82 0.82 Calcium 9.7 9.4 Cardiac Enzymes 06/05/18 Range/Units 17:40 Total Creatine Kinase 248 (39-308) U/L CK-MB (CK-2) 2.1 (0.5-3.6) ng/mL Troponin I Less than 0.02 L (0.02-0.05) ng/mL Liver Function 06/05/18 Range/Units 17:40 Total Bilirubin 0.4 (0.2-1.0) mg/dL AST 65 H (15-37) U/L ALT 114 H (12-78) U/L Alkaline Phosphatase 89 (45-117) U/L Albumin 4.3 (3.4-5.0) g/dL - Imaging Impressions Chest X-Ray 06/05/18 17:32 CONCLUSION: 1. New cardiac loop recorder projecting over the left hemithorax. 2. Extensive bullous disease again seen in the upper lungs, left greater than right. 3. Presumed postoperative changes of the right upper lung. 4. Reticular and patchy opacities again seen in the mid and lower lungs with probable pleural thickening, not significantly changed since prior exam. Chest CT 06/05/18 18:18 CONCLUSION: 1. No pneumothorax. 2. Severe underlying emphysema and bullous change greatest in the left lung apex. 3. Severe hepatic steatosis. Caprini VTE Risk Assessment Caprini VTE Risk Assessment: Moderate/High Risk (score >= 2) Caprini Risk Assessment Model: Point Value = 1 Point Value = 2 Point Value = 3 Point Value = 5 Age 41-60 Minor surgery BMI > 25 kg/m2 Swollen legs Varicose veins or History of unexplained or recurrent spontaneous Oral contraceptives or hormone replacement Sepsis (< 1 month) Serious lung disease, including pneumonia (< 1 month) Abnormal pulmonary function Acute myocardial infarction Congestive heart failure (< 1 month) History of inflammatory bowel disease Medical patient at bed rest Age 61-74 Arthroscopic surgery Major open surgery (> 45 min) Laparoscopic surgery (> 45 min) Malignancy Confined to bed (> 72 hours) Immobilizing plaster cast Central venous access Age >= 75 History of VTE Family history of VTE Factor V Leiden Prothrombin [id number] Lupus anticoagulant Anticardiolipin antibodies Elevated serum homocysteine Heparin-induced thrombocytopenia Other congenital or acquired thrombophilia Stroke (< 1 month) Elective arthroplasty Hip, pelvis, or leg fracture Acute spinal cord injury (< 1 month) Prophylaxis Regimen: Total Risk Factor Score Risk Level Prophylaxis Regimen 0-1 Low Early ambulation 2 Moderate Order ONE of the following: *Sequential Compression Device (SCD) *Heparin 5000 units SQ BID 3-4 Higher Order ONE of the following medications: *Heparin 5000 units SQ TID *Enoxaparin/Lovenox 40 mg SQ daily (WT < 150 kg, CrCl > 30 mL/min) *Enoxaparin/Lovenox 30 mg SQ daily (WT < 150 kg, CrCl > 10-29 mL/min) *Enoxaparin/Lovenox 30 mg SQ BID (WT < 150 kg, CrCl > 30 mL/min) AND/OR *Sequential Compression Device (SCD) 5 or more Highest Order ONE of the following medications: *Heparin 5000 units SQ TID (Preferred with Epidurals) *Enoxaparin/Lovenox 40 mg SQ daily (WT < 150 kg, CrCl > 30 mL/min) *Enoxaparin/Lovenox 30 mg SQ daily (WT < 150 kg, CrCl > 10-29 mL/min) *Enoxaparin/Lovenox 30 mg SQ BID (WT < 150 kg, CrCl > 30 mL/min) AND *Sequential Compression Device (SCD) Assessment and Plan - Assessment (1) COPD with acute exacerbation Code(s): J44.1 - Chronic obstructive pulmonary disease with (acute) exacerbation Status: Acute (2) Chest pain in adult Code(s): R07.9 - Chest pain, unspecified Status: Acute - Plan Mr. Arriaza is a 57 yo M with: Cardiac/Respiratory Chest pain COPD Impression: pleuritic in nature. PMH COPD CXR- new loop recorder. Extensive bullous disease in upper lungs; L greater than R. Post op changes of right upper lung. Reticular/patchy opacities in mid/ lower lungs with probable pleural thickening; not significantly changed Chest CT- No pneumothorax. Severe underlying emphysema and bullous change greatest in left lung apex. Severe hepatic steatosis Leukocytosis improved during hospitalization: 15.8K on admission-> 10.5K today -ACS rule out -Troponins/EKGs reassuring of lack of ACS -COPD, suspect exacerbation -Continue Solumedrol 40mg IV q8hrs -Continue Azithromycin 500mg daily -Continue Duonebs -Will consult Pulmonology (known to Dr. Cisse) due to extensive emphysematous disease/prior lobectomy -Possible need for home O2 at discharge -Continue to monitor O2 saturations, vital signs CAD risk, HTN -Continue home ASA, statin, NATHAN, BB DM -Continue home metformin -Continue home Januvia -low dose SS insulin GERD/history of GI bleed -Continue PPI Chronic pain -Continue home medications -Continue PT DVT PPX -Continue Lovenox 40mg daily Code Status: Full code Discharge Planning: Anticipate discharge with O2/HH pending Pulm eval H&P: Quality - VTE Deep Vein Thrombosis/Pulmonary Embolism Present on Admission: No
[2018-06-06] MEDS ORDERED: LECITHIN 1200 MG PO SCH (09:00)
[2018-06-06] MEDS: Vitamin B Complex/Vit C/Folic Tablet PO SCH (09:41)
[2018-06-06] MEDS: Lisinopril 5 MG Tablet PO SCH (09:41)
[2018-06-06] MEDS: Pantoprazole Sodium 20 MG DR Tablet PO SCH (09:42)
[2018-06-06] MEDS: Metoprolol Tartrate 50 MG Tablet PO SCH ×2 (09:42→21:19)
[2018-06-06] MEDS: Gemfibrozil 600 MG Tablet PO SCH ×2 (09:42→21:19)
[2018-06-06] MEDS: Gabapentin 300 MG Capsule PO SCH ×3 (09:42→17:42)
[2018-06-06] MEDS: Ascorbic Acid 500 MG Tablet PO SCH (09:42)
[2018-06-06] MEDS: Azithromycin Inj 500 MG in Sodium Chlor 0.9% Inj 250 ML IV.SIG SCH (09:53)
[2018-06-06 10:24] LABS: Alanine Aminotransferase 97 U/L (12-78); Albumin 3.5 g/dL (3.4-5.0); Alkaline Phosphatase 77 U/L (45-117); Aspartate Aminotransferase 44 U/L (15-37); Total Protein 7.4 g/dL (6.4-8.2)
--- NOTE | 2018-06-06 18:30 | ECG ---
Date Performed: 06/06/2018 Time Performed: 10:29:04 PTAGE: 57 years EKG: Sinus rhythm NORMAL ECG PREVIOUS TRACING : 06/05/2018 17.24 Since the previous tracing, no significant change noted DOCTOR: Vargas Greenwood Interpretating Date/Time 06/06/2018 18:29:27
--- NOTE | 2018-06-06 18:59 | ECG ---
Date Performed: 06/05/2018 Time Performed: 17:24:49 PTAGE: 57 years EKG: SINUS TACHYCARDIA NONSPECIFIC ST & T-WAVE ABNORMALITY ABNORMAL RHYTHM ECG PREVIOUS TRACING : 04/30/2018 08.34 Since the previous tracing, no significant change noted DOCTOR: Vargas Greenwood Interpretating Date/Time 06/06/2018 18:53:49
[2018-06-06] MEDS: Enoxaparin Inj 40 MG/0.4 ML Syringe SQ SCH (21:17)
[2018-06-07] MEDS: MethylPREDNISolone Sod Succinate Inj 40 MG/ML Vial IV.PUSH SCH ×3 (01:51→21:51)
[2018-06-07] MEDS: Morphine Sulfate Inj 2 MG/ML Vial IV.PUSH PRN ×4 (01:51→23:46)
[2018-06-07 06:28] LABS: Chloride 100 meq/L (98-107); Potassium 5.2 meq/L (3.5-5.1); Sodium 134 meq/L (136-145)
[2018-06-07 06:33] LABS: Albumin 3.4 g/dL (3.4-5.0); Calcium 9.2 mg/dL (8.5-10.1); Glucose,Random 361 mg/dL (74-106)
[2018-06-07 06:34] LABS: Anion Gap 8 meq/L (5-15); Blood Urea Nitrogen 18 mg/dL (7-18); Carbon Dioxide 25.6 meq/L (21.0-32.0)
[2018-06-07 06:36] LABS: Alanine Aminotransferase 84 U/L (12-78); Aspartate Aminotransferase 37 U/L (15-37); Glomerular Filtration Rate Greater Than 89 mL/min (>89)
[2018-06-07 06:38] LABS: Total Protein 7.4 g/dL (6.4-8.2)
[2018-06-07 06:39] LABS: Alkaline Phosphatase 74 U/L (45-117)
[2018-06-07 06:45] LABS: Baso % (Auto) 0.1 % (0.0-2.0); Eos % (Auto) 0.1 % (0.0-4.0); Hematocrit 40.2 % (39.0-51.0); Hemoglobin 13.8 gm/dL (13.0-17.0); Lymph # (Auto) 1.6 th/mm3 (1.0-4.8); Lymph % (Auto) 8.4 % (9.0-44.0); Mean Corpuscular HGB Conc 34.4 % (32.0-36.0); Mean Corpuscular Hemoglobin 32.1 pg (27.0-34.0); Mean Corpuscular Volume 93.4 fL (80.0-100.0); Mean Platelet Volume 9.5 fL (7.0-11.0); Mono # (Auto) 0.6 th/mm3 (0.0-0.9); Neut # (Auto) 16.8 th/mm3 (1.8-7.7); Neut % (Auto) 88.4 % (16.0-70.0); Platelet Count 230 th/mm3 (150-450); Red Blood Count 4.31 mil/mm3 (4.50-5.90); Red Cell Distribution Width 12.2 % (11.6-17.2)
[2018-06-07] MEDS ORDERED: Dextrose 50% in Water 50 ML Vial IV.PUSH PRN (07:10)
--- NOTE | 2018-06-07 07:53 | P.PNIM ---
Subjective Interval history: Mr. Arrizaa was afebrile with stable VS overnight; O2 saturations in low 90's on 2L O2 via [place]. Supplemental history obtained that patient uses 2L O2 at home. Per nursing staff, elevated blood glucoses this morning; patient started on sliding scale insulin. Patient reports that his chest pain is improving. No reported shortness of breath, or bowel/urinary abnormalities. Regarding glucose elevations, he reports recent A1C 7.1 03/2018. Physical Exam Vital signs: Vital Signs 06/06/18 08:00 06/06/18 09:40 06/06/18 12:00 Temperature 98.7 F 97.8 F Pulse Rate 107 H 97 H Respiratory Rate 19 21 Blood Pressure 126/62 118/57 L Pulse Oximetry 91 L 91 L 90 L 06/06/18 13:01 06/06/18 15:57 06/06/18 19:24 Temperature 97.3 F L Pulse Rate 90 98 H 90 Respiratory Rate 20 19 18 Blood Pressure 115/57 L Pulse Oximetry 92 L 92 L 06/06/18 20:00 06/07/18 00:00 Temperature 96.8 F L 97.5 F L Pulse Rate 94 H 88 Respiratory Rate 20 24 Blood Pressure 126/63 124/72 Pulse Oximetry 92 L 92 L Intake & Output 06/06/18 06/07/18 06/07/18 18:59 06:59 18:59 Intake Total 970 / 970 1200 / 1200 Output Total 500 / 500 1000 / 1000 Balance 470 / 470 200 / 200 Weight 125.7 kg Intake: IV 250 / 250 Azithromycin Inj 500 MG In NS 250 / 250 Inj 250 ML @ 250 mls/hr IV.SIG Q24H [facility] Rx#:[id number] Oral 720 / 720 1200 / 1200 Output: Urine 500 / 500 1000 / 1000 Narrative: GENERAL: No acute distress SKIN: No visible lesions EYES: EOM I. ENT: Mucus membranes moist CARDIOVASCULAR: Regular rate and rhythm without murmurs; normal perfusion RESPIRATORY: decreased breath sounds bilaterally; normal rate GASTROINTESTINAL: Abdomen soft, non-tender, nondistended. Normal bowel sounds MUSCULOSKELETAL: Grossly normal ROM and motor function NEUROLOGICAL: Awake and alert. Grossly normal cranial nerves. Grossly normal peripheral motor/sensory function Results - Labs CBC & Chem 7: 06/07/18 04:55 06/07/18 04:55 Laboratory Results - last 24 hr 0906/07/18 06/07/18 06:27 04:55 04:55 CBC w Diff Auto diff final WBC 19.0 H D RBC 4.31 L Hgb 13.8 Hct 40.2 MCV 93.4 MCH 32.1 MCHC 34.4 RDW 12.2 Plt Count 230 MPV 9.5 Neut % (Auto) 88.4 H Lymph % (Auto) 8.4 L [place] % (Auto) 3.0 Eos % (Auto) 0.1 Baso % (Auto) 0.1 Neut # (Auto) 16.8 H Lymph # (Auto) 1.6 [place] # (Auto) 0.6 Eos # (Auto) 0.0 Baso # (Auto) 0.0 WBC Differential . Differential Comment . Sodium 134 L Potassium 5.2 H Chloride 100 Carbon Dioxide 25.6 Anion Gap 8 BUN 18 Creatinine 0.79 Estimated GFR Greater than 89 POC Glucose Random Glucose 361 H Calcium 9.2 Total Bilirubin 0.5 0.3 Direct Bilirubin 0.1 Indirect Bilirubin 0.4 AST 44 H 37 ALT 97 H 84 H Alkaline Phosphatase 77 74 Troponin I Less than 0.02 L Total Protein 7.4 D 7.4 Albumin 3.5 D 3.4 06/07/18 07:29 CBC w Diff WBC RBC Hgb Hct MCV MCH MCHC RDW Plt Count MPV Neut % (Auto) Lymph % (Auto) [place] % (Auto) Eos % (Auto) Baso % (Auto) Neut # (Auto) Lymph # (Auto) [place] # (Auto) Eos # (Auto) Baso # (Auto) WBC Differential Differential Comment Sodium Potassium Chloride Carbon Dioxide Anion Gap BUN Creatinine Estimated GFR POC Glucose 431 H Random Glucose Calcium Total Bilirubin Direct Bilirubin Indirect Bilirubin AST ALT Alkaline Phosphatase Troponin I Total Protein Albumin Assessment and Plan - Assessment (1) COPD with acute exacerbation Code(s): J44.1 - Chronic obstructive pulmonary disease with (acute) exacerbation Status: Acute (2) Chest pain in adult Code(s): R07.9 - Chest pain, unspecified Status: Acute - Plan Mr. Arriaza is a 57 yo M with: Cardiac/Respiratory Chest pain COPD Impression: pleuritic in nature. [facility] COPD CXR- new loop recorder. Extensive bullous disease in upper lungs; L greater than R. Post op changes of right upper lung. Reticular/patchy opacities in mid/ lower lungs with probable pleural thickening; not significantly changed Chest CT- No pneumothorax. Severe underlying emphysema and bullous change greatest in left lung apex. Severe hepatic steatosis Leukocytosis improved during hospitalization: 15.8K on admission-> 10.5K today -ACS rule out -Troponins/EKGs reassuring of lack of ACS -COPD, suspect exacerbation -Continue Solumedrol 40mg IV q8hrs; will decrease to q12 hrs -Continue Azithromycin 500mg daily -Continue Duonebs -Will repeat CXR -Will consult Pulmonology (known to Dr. Cisse) due to extensive emphysematous disease/prior lobectomy -Continue to monitor O2 saturations, vital signs CAD risk, HTN -Continue home ASA, statin, NATHAN, BB DM Impression: Increased blood glucoses during hospitalization. Recent A1C 7.1; presume current hyperglycemia secondary to steroids -Continue home metformin -Will hold home Januvia -added low dose SS insulin Leukocytosis Impression: WBC 15.8 on admission (neutrophils 76.4%)-> 10.5 (/)-> 19 (88.4% neutrophils) (06/07). Presume secondary to steroids -Continue to monitor CBC -Continue empiric Azithromycin for suspected COPD exacerbation GERD/history of GI bleed -Continue PPI Chronic pain -Continue home medications -Continue PT DVT PPX -Continue Lovenox 40mg daily Code Status: Full code Discharge Planning: Anticipate discharge with O2/HH pending [facility]
[2018-06-07] MEDS: Insulin NovoLOG Aspart Correctional Sugar Inj SQ SCH ×4 (08:00→21:50)
[2018-06-07] MEDS: Pantoprazole Sodium 20 MG DR Tablet PO SCH (08:09)
[2018-06-07] MEDS: Vitamin B Complex/Vit C/Folic Tablet PO SCH (08:09)
[2018-06-07] MEDS: Lisinopril 5 MG Tablet PO SCH (08:10)
[2018-06-07] MEDS: Ascorbic Acid 500 MG Tablet PO SCH (08:10)
[2018-06-07] MEDS: Gabapentin 300 MG Capsule PO SCH ×3 (08:11→16:59)
[2018-06-07] MEDS: Gemfibrozil 600 MG Tablet PO SCH ×2 (08:11→21:50)
[2018-06-07] MEDS: Metoprolol Tartrate 50 MG Tablet PO SCH ×2 (08:12→21:50)
[2018-06-07] MEDS: Azithromycin Inj 500 MG in Sodium Chlor 0.9% Inj 250 ML IV.SIG SCH (08:12)
--- NOTE | 2018-06-07 08:47 | XR ---
EXAM DATE: 06/07/2018 8:33 AM EDT AGE/SEX: 57 years / Male INDICATIONS: Short of breath CLINICAL DATA: This is the patient's subsequent encounter. Patient reports that signs and symptoms h ave been present for 2 days and indicates a pain score of 0/10. MEDICAL/SURGICAL HISTORY: Hypertension. Chronic obstructive pulmonary disease. Heart murmur. Lobectomy. COMPARISON: [facility], CHEST 1V SINGLE AP, 06/05/2018. . FINDINGS: No significant change is identified in the appearance of the chest. Again noted are advanced changes of chronic obstructive pulmonary disease. Extensive emphysematous changes are seen in the upper lobes . Interstitial scarring is identified in the bases. There is no evidence of developing airspace disea se or significant congestion. Heart and mediastinal structures are stable. CONCLUSION: Severe COPD without significant change since the prior exam. No findings to suggest acute airspace disease or significant congestion. Electronically signed by: Tristin Mayorga MD 06/07/2018 8:46 AM EDT
--- NOTE | 2018-06-07 10:51 | MB ---
cc: Sanam Marion MD DATE: 06/07/2018 REASON FOR CONSULTATION: Chronic obstructive pulmonary disease, chest pain. HISTORY OF PRESENT ILLNESS: Mr. Arriaza is a 57-year-old male with extensive previous medical history. He has known history of COPD; comes to the emergency room complaining of left shoulder, chest pain, worsened with deep breathing; more dull, aching then sharp, increasing shortness of breath; no cough, expectoration, no fever, no chills, no hemoptysis. He is followed by Dr. Cisse in [place] from a pulmonary standpoint. The patient has been seen by cardiology and cardiac evaluation thus far negative. He did have similar episodes of chest pain over the years. He did have a left upper lobectomy in the past apparently for pneumothorax. He denies history of fever, chills or hemoptysis. PAST MEDICAL HISTORY: Notable for COPD, renal cell cancer by previous needle biopsy, gastrointestinal bleed, acid reflux disease, diabetes mellitus and hypertension. He is status post left upper lung lobectomy post-pneumothorax. PAST SURGICAL HISTORY: Cholecystectomy, renal biopsy and ablation, rotator cuff surgery. SOCIAL HISTORY: He used to smoke, stopped in 2012. Does not use drugs. Drinks alcohol on occasion. FAMILY HISTORY: Noncontributory. REVIEW OF SYSTEMS: A 12-point review of systems As per HPI. PAST HISTORY: Otherwise negative. PHYSICAL EXAMINATION: GENERAL: The patient is alert. VITAL SIGNS: Temperature 98, pulse 80, respirations 16, blood pressure 130/78. HEENT: Unremarkable. Eyes without icterus. NECK: Without adenopathy, thyroid enlargement. Central trachea. CHEST: Without dullness to percussion. Few scattered rhonchi on auscultation. HEART: PMI not appreciated. S1, S2 audible. No murmur. No rub. ABDOMEN: Lax, audible bowel sounds. PSYCHIATRIC: No clubbing, cyanosis or edema. SKIN: Normal. No lymphadenopathy. MEDICATIONS: 1. Albuterol DuoNeb. 2. Zinc. IMPRESSION: 1. Chronic obstructive pulmonary disease exacerbation. 2. Chest pain probably musculoskeletal, evaluation in progress. 3. Status post left upper lobectomy for severe emphysematous changes by CT scan of the chest. PLAN: 1. The patient will be given oxygen therapy as needed. He does have home O2. 2. Continue bronchodilator therapy, IV Solu-Medrol. 3. Cardiac evaluation. 4. We will follow the patient's course, along with you and, depending on progress proceed I do thank you for asking me to partake in Mr. Arriaza's care. MD BOB Aviles/alma , 10:16 AM , 10:25 AM
[2018-06-07] MEDS ORDERED: Insulin Detemir Inj 1,000 UNIT/10 ML Vial SQ ONE (12:05)
[2018-06-07] MEDS: Insulin Detemir Inj 1,000 UNIT/10 ML Vial SQ SCH (21:50)
[2018-06-07] MEDS: Enoxaparin Inj 40 MG/0.4 ML Syringe SQ SCH (21:50)
[2018-06-08] MEDS: Morphine Sulfate Inj 2 MG/ML Vial IV.PUSH PRN (04:58)
[2018-06-08 08:10] LABS: Baso % (Auto) 0.1 % (0.0-2.0); Eos % (Auto) 0.1 % (0.0-4.0); Hematocrit 43.8 % (39.0-51.0); Hemoglobin 14.6 gm/dL (13.0-17.0); Lymph # (Auto) 1.6 th/mm3 (1.0-4.8); Lymph % (Auto) 10.6 % (9.0-44.0); Mean Corpuscular HGB Conc 33.3 % (32.0-36.0); Mean Corpuscular Hemoglobin 31.4 pg (27.0-34.0); Mean Corpuscular Volume 94.1 fL (80.0-100.0); Mean Platelet Volume 9.4 fL (7.0-11.0); Mono # (Auto) 0.6 th/mm3 (0.0-0.9); Mono % (Auto) 4.1 % (0.0-8.0); Neut # (Auto) 13.3 th/mm3 (1.8-7.7); Neut % (Auto) 85.1 % (16.0-70.0); Platelet Count 259 th/mm3 (150-450); Red Blood Count 4.65 mil/mm3 (4.50-5.90); Red Cell Distribution Width 12.3 % (11.6-17.2); White Blood Count 15.5 th/mm3 (4.0-11.0)
[2018-06-08 08:18] LABS: Chloride 99 meq/L (98-107); Potassium 4.4 meq/L (3.5-5.1); Sodium 136 meq/L (136-145)
[2018-06-08 08:22] LABS: Calcium 9.1 mg/dL (8.5-10.1)
[2018-06-08 08:23] LABS: Anion Gap 11 meq/L (5-15); Blood Urea Nitrogen 18 mg/dL (7-18); Carbon Dioxide 26.1 meq/L (21.0-32.0); Glucose,Random 315 mg/dL (74-106)
[2018-06-08 08:26] LABS: Glomerular Filtration Rate Greater Than 89 mL/min (>89)
[2018-06-08] MEDS: Gabapentin 300 MG Capsule PO SCH ×2 (08:52→12:33)
[2018-06-08] MEDS: Ascorbic Acid 500 MG Tablet PO SCH (08:52)
[2018-06-08] MEDS: Lisinopril 5 MG Tablet PO SCH (08:52)
[2018-06-08] MEDS: Pantoprazole Sodium 20 MG DR Tablet PO SCH (08:52)
[2018-06-08] MEDS: Gemfibrozil 600 MG Tablet PO SCH (08:53)
[2018-06-08] MEDS: Insulin Detemir Inj 1,000 UNIT/10 ML Vial SQ SCH (08:53)
[2018-06-08] MEDS: Insulin NovoLOG Aspart Correctional Sugar Inj SQ SCH ×2 (08:54→12:33)
[2018-06-08] MEDS: MethylPREDNISolone Sod Succinate Inj 40 MG/ML Vial IV.PUSH SCH (08:54)
[2018-06-08] MEDS: Metoprolol Tartrate 50 MG Tablet PO SCH (08:54)
[2018-06-08] MEDS ORDERED: Azithromycin 250 MG Tablet PO SCH (09:00)
[2018-06-08] MEDS: Vitamin B Complex/Vit C/Folic Tablet PO SCH (09:12)
[2018-06-08 12:15] VITALS: BP 142/78; TEMP 96.8; O2SAT 95
--- NOTE | 2018-06-08 12:31 | P.PNIM ---
Subjective Interval history: Mr. Arriaza was afebrile with stable VS overnight (intermittent mild HTN; stable saturations on 2L O2 via NC). He reports that he is feeling better with improvement in his chest pain. patient feels that his breathing is now near baseline. We discussed bedside glucose elevations on steroids; he plans to monitor them closely at home. Patient states that he made f/u with Dr. Cisse and plans to pursue Pulmonary rehab as an outpatient. Physical Exam Vital signs: Vital Signs 06/07/18 14:04 06/07/18 15:53 06/07/18 16:00 Temperature 97.8 F Pulse Rate 87 89 Respiratory Rate 21 21 17 Blood Pressure 130/59 L Pulse Oximetry 90 L 06/07/18 18:07 06/07/18 18:42 06/07/18 19:33 Temperature Pulse Rate 90 Respiratory Rate 18 16 Blood Pressure Pulse Oximetry 94 L 93 L 06/07/18 20:00 06/07/18 23:34 06/08/18 00:00 Temperature 96 F L 96 F L Pulse Rate 89 86 85 Respiratory Rate 20 16 20 Blood Pressure 138/90 144/83 H Pulse Oximetry 93 L 93 L 06/08/18 07:43 06/08/18 08:00 06/08/18 12:00 Temperature 96.1 F L 96.8 F L Pulse Rate 84 94 H 75 Respiratory Rate 18 18 18 Blood Pressure 131/84 142/78 H Pulse Oximetry 92 L 94 L 95 Intake & Output 06/07/18 06/08/18 06/08/18 18:59 06:59 18:59 Intake Total 1210 / 1210 1500 / 1500 Output Total 1701 / 1701 Balance -491 / -491 1500 / 1500 Weight 125.3 kg Intake: IV 250 / 250 Azithromycin Inj 500 MG In NS 250 / 250 Inj 250 ML @ 250 mls/hr IV.SIG Q24H EDENILSON Rx#:[id number] Oral 960 / 960 1500 / 1500 Output: Urine 1700 / 1700 Stool Other: # Voids 3 Date of Last Bowel Movement 06/07/18 Narrative: GENERAL: No acute distress SKIN: No visible lesions EYES: EOM I. ENT: Mucus membranes moist CARDIOVASCULAR: Regular rate and rhythm without murmurs; normal perfusion RESPIRATORY: decreased breath sounds bilaterally; normal rate on 2L O2 via NC GASTROINTESTINAL: Abdomen soft, non-tender, nondistended. Normal bowel sounds MUSCULOSKELETAL: Grossly normal ROM and motor function NEUROLOGICAL: Awake and alert. Grossly normal cranial nerves. Grossly normal peripheral motor/sensory function Results - Labs CBC & Chem 7: 06/08/18 07:27 06/08/18 07:27 Laboratory Results - last 24 hr 06/07/18 06/07/18 06/08/18 16:24 21:12 07:27 CBC w Diff Auto diff final WBC 15.5 H RBC 4.65 Hgb 14.6 Hct 43.8 MCV 94.1 MCH 31.4 MCHC 33.3 RDW 12.3 Plt Count 259 MPV 9.4 Neut % (Auto) 85.1 H Lymph % (Auto) 10.6 [place] % (Auto) 4.1 Eos % (Auto) 0.1 Baso % (Auto) 0.1 Neut # (Auto) 13.3 H Lymph # (Auto) 1.6 [place] # (Auto) 0.6 Eos # (Auto) 0.0 Baso # (Auto) 0.0 WBC Differential . Differential Comment . Sodium Potassium Chloride Carbon Dioxide Anion Gap BUN Creatinine Estimated GFR POC Glucose 392 H 342 H Random Glucose Calcium 06/08/18 06/08/18 06/08/18 07:27 07:29 11:44 CBC w Diff WBC RBC Hgb Hct MCV MCH MCHC RDW Plt Count MPV Neut % (Auto) Lymph % (Auto) [place] % (Auto) Eos % (Auto) Baso % (Auto) Neut # (Auto) Lymph # (Auto) [place] # (Auto) Eos # (Auto) Baso # (Auto) WBC Differential Differential Comment Sodium 136 Potassium 4.4 D Chloride 99 Carbon Dioxide 26.1 Anion Gap 11 BUN 18 Creatinine 0.81 Estimated GFR Greater than 89 POC Glucose 297 H 343 H Random Glucose 315 H Calcium 9.1 Assessment and Plan - Assessment (1) COPD with acute exacerbation Code(s): J44.1 - Chronic obstructive pulmonary disease with (acute) exacerbation Status: Acute (2) Chest pain in adult Code(s): R07.9 - Chest pain, unspecified Status: Acute - Plan Mr. Arriaza is a 57 yo M with: Cardiac/Respiratory Chest pain COPD Impression: pleuritic in nature. [facility] COPD CXR- new loop recorder. Extensive bullous disease in upper lungs; L greater than R. Post op changes of right upper lung. Reticular/patchy opacities in mid/ lower lungs with probable pleural thickening; not significantly changed Chest CT- No pneumothorax. Severe underlying emphysema and bullous change greatest in left lung apex. Severe hepatic steatosis Repeat CXR 06/07- severe COPD without significant change -ACS rule out -Troponins/EKGs reassuring of lack of ACS -COPD, suspect exacerbation -Pulmonology consulted -Will plan to discharge on oral prednisone 40mg taper until seen by Dr. Cisse -Continue Azithromycin 500mg daily -Continue Duonebs -F/u with Dr. Cisse 06/12 per patient -Singulair started at discharge; allergy medications restarted -Continue to monitor O2 saturations, vital signs CAD risk, HTN -Continue home ASA, statin, NATHAN, BB -Discussed with patient that ACS rule-out was reassuring, but that he could consider further stress test with Cardiology if concern grows DM Impression: Recent A1C 7.1 per patient Uncontrolled glucoses generally in 300's during hospitalization; suspect secondary to steroids -Treated during hospitalization with Novolog, Levemir -Continue home metformin -Restart home Januvia -Patient will monitor daily at home Leukocytosis Impression: WBC 15.8 on admission (neutrophils 76.4%)-> 10.5 (06/06)-> 19 (88.4% neutrophils) (06/07)-> 15.5K (06/08). Presume secondary to steroids -Continue to monitor CBC -Continue empiric Azithromycin for suspected COPD exacerbation GERD/history of GI bleed -Continue PPI Chronic pain -Continue home medications -Continue PT DVT PPX -Continue Lovenox 40mg daily Discharge Planning: Plan for d/c home today and f/u with Pulmonology 06/12
[2018-06-08 14:51] VITALS: PULSE 94; RESP 20
--- NOTE | 2018-06-11 20:21 | P.DS ---
Date of admission: 06/06/18 13:46 Primary care physician: Duane Morrison Attending physician on discharge: Damien Castellanos Anticipated date of discharge: 06/08/18 Brief History from admission: Mr. Arriaza is a 57 yo M with PMH COPD, HTN, GERD, DM, prior GI bleed who presented to [place] ED 06/05 with chest pain. Mr. Arriaza reports having pain since yesterday; he states that he saw his Sanitary Landfill Operator (Dr. Greenwood) and was sent to the ER for respiratoruy evaluation. Patient sees Dr. Cisse as his [employer]. Pain started while sitting in his recliner in his left back and radiated to left shoulder. Patient reports shortness of breath in addition to his chest pain. Patient states that his pain improved since arrival at ED until he awoke again this morning with pain. Patient currently rates his pain at 5/10 in severity. It is worse with deep breathing but constant. No exertional component. Patient has had some cough and mucus production. No recent fevers. Meds reviewed- also takes Flonase. Trilogy for breathing. Takes nebulizers PMH HTN, COPD, GI bleed, GERD, DM PSH Lobectomy from left lung Cholecystectomy Sebaceous cyst removal Rotator cuff repair SH prior smoker- 2012 no significant drinking or drug abuse Patient update on day of discharge: Mr. Arriaza was afebrile with stable VS overnight (intermittent mild HTN; stable saturations on 2L O2 via NC). He reports that he is feeling better with improvement in his chest pain. patient feels that his breathing is now near baseline. We discussed bedside glucose elevations on steroids; he plans to monitor them closely at home. Patient states that he made f/u with Dr. Cisse and plans to pursue Pulmonary rehab as an outpatient. DS: Diagnosis - Discharge Diagnosis (1) COPD with acute exacerbation Status: Acute (2) Chest pain in adult Status: Acute DS: Medications - Discharge Medications Prescriptions: azithromycin 500 mg PO DAILY #8 tab cetirizine 10 mg PO DAILY #30 tab fluticasone 2 spray NASAL DAILY #1 box montelukast [Singulair] 10 mg PO QPM #30 tab prednisone 10 mg PO DAILY #28 tab prednisone 5 mg PO DAILY #5 tab DS: Summary Hospital Course: Mr. Arriaza is a 57 yo M with PMH COPD, HTN, GERD, DM, prior GI bleed who presented to [place] ED 06/05 with chest pain; respiratory evaluation recommended by [employer] Land[employer] Operator when seen earlier that day in clinic. Troponin and EKG's were used to rule-out ACS. Chest XR showed bullous disease in upper lungs and reticular/ patchy opacities in mid/lower lungs w/ some pleural thickening that did not seem changed. Chest CT showed severe emphysema and bullous changes but no pneumothorax. Patient was treated for COPD exacerbation with IV Solumedrol and Azithromycin. Patient's home CAD medications were continued. Patient developed hyperglycemia deemed secondary to steroids during hospitalization; he was given SS insulin and Levemir during hospitalization. Patient also developed leukocytosis during hospitalization deemed secondary to steroid usage. With improvement in symptoms, patient was transitioned to oral steroids. Patient's chest pain improved; he was transitioned to oral steroids and discharged 06/08 to follow-up with his [employer] and consider further cardiac work-up if chest pain recurred. - Time Spent with Patient Total time spent providing and/or coordinating discharge services: Less than 30 minutes - Quality: VTE Deep Vein Thrombosis/Pulmonary Embolism Present on Admission: No Exam Vital signs: Initial Documented Vital Signs Pulse Rate 114 H 06/05/18 17:44 Respiratory Rate 06/05/18 17:44 Last Documented Vital Signs Temperature 96.8 F L 06/08/18 12:00 Pulse Rate 94 H 06/08/18 14:49 Respiratory Rate 20 06/08/18 14:49 Blood Pressure 142/78 H 06/08/18 12:00 Pulse Oximetry 95 06/08/18 12:00 Narrative: GENERAL: No acute distress SKIN: No visible lesions EYES: EOM I. ENT: Mucus membranes moist CARDIOVASCULAR: Regular rate and rhythm without murmurs; normal perfusion RESPIRATORY: decreased breath sounds bilaterally; normal rate on 2L O2 via [place] GASTROINTESTINAL: Abdomen soft, non-tender, nondistended. Normal bowel sounds MUSCULOSKELETAL: Grossly normal ROM and motor function NEUROLOGICAL: Awake and alert. Grossly normal cranial nerves. Grossly normal peripheral motor/sensory function Results Procedures completed during hospitalization: none - Impressions ITS Impressions Chest CT 06/05/18 18:18 CONCLUSION: 1. No pneumothorax. 2. Severe underlying emphysema and bullous change greatest in the left lung apex. 3. Severe hepatic steatosis. Chest X-Ray 09/14/18 00:00 CONCLUSION: Severe COPD without significant change since the prior exam. No findings to suggest acute airspace disease or significant congestion. Discharge Plan - Discharge Disposition Patient Disposition: 01 Discharge Home - Discharge Condition Condition: Stable - Discharge Order Discharge Orders: Discharge Order (Routine); Ordered 06/08/18 Ordered By: Damien Castellanos - Discharge Details Anticipated Discharge Date: 06/08/18 - Physicians Team Attending Provider: Damien Castellanos Other Providers: Sanam Marion MD
== END 2018-06-08 15:18 | disposition home or self-care (01) ==
LOC: PHEDA 17:20 → PHED 17:20 → PH3 20:47
PROVIDERS: ADMIT Family Medicine; ATTEND Family Medicine